=== PATIENT | male | born 1955 | race Caucasian/White ===

== ENCOUNTER 2016-05-07 13:45 | Emergency (ER) | payer MEDICARE ==
[~2016-05-07] VITALS: Ht 177.8 cm; Wt 97.7 kg
[~2016-05-07 13:45] MED LIST: SERT100T9 PO; excedrin
[2016-05-07 13:47] VITALS: BP 114/53; PULSE 84; RESP 20; O2SAT 98
--- NOTE | 2016-05-07 18:19 | ED.REPORT ---
HPI-Overdose/Alcohol Toxicity Date of Service May 07, 2016 ED Provider: Kasia Frost History of Present Illness: drinking , interested in going to detox. had a seizure with stopping alcohol last time. some nausea. tessa is primary care. Nursing Notes Stated Complaint: DETOX Chief Complaint: Substance Abuse Nursing Notes Reviewed: Yes Allergies: Coded Allergies: No Known Allergies (Unverified Allergy, Unknown, 01/18/15) Scheduled Sertraline HCl (Sertraline) 100 Mg Tablet 150 MG PO DAILY Scheduled PRN ([excedrin]) Unknown Dose PRN For Pain General Time Seen by Provider: 18:15 Chief Complaint Other (alcohol detox) Hx Obtained From: Patient Risk-Overdose/Alcohol Tox )( Suicide Risk Stratification : Alcohol use: Close associate suicide: [facility] psych [facility] Substance abuseNo: Access to firearms, Family Hx of Suicide, Previous attempt RF Statements: Risk factors reviewed Past Medical History Past Medical History PTSD Past Surgical History none reported Family History noncontributory Smoking History Unknown if Ever Smoker Social History Alcohol Use: 1-3 per day Other Social History: Smokeless tobacco Ambulatory Status Independent Review of Systems Basic Review of Systems : No dysuria, No frequency Hematologic: No bleeding, No bruising Endocrine: No cold intolerance, No heat intolerance, No weight gain, No weight loss Allergy / Immune: No allergy Physical Exam Initial Vital Signs Vital Signs (First) Date Time Temp Pulse Resp B/P Pulse Ox O2 Delivery O2 Flow Rate FiO2 05/07/16 13:47 36.8 84 20 114/53 98 Room Air Initial VS: Reviewed, Vital signs normal Head / Eyes: Atraumatic, Normocephalic, PERRL ENT: Mucous membranes moist, Conjunctiva normal, No scleral icterus Neck: Supple, Non-tender, Full range of motion Back: No CVA tenderness Lymphatic: No lymphadenopathy Extremities: Vascular intact, Neuro intact, No swelling, No tenderness Skin: Warm, Dry, No cyanosis General/Constitutional: Awake, Alert, No acute distress Respiratory / Chest: Atraumatic, Breath sounds NL, Breath sounds = bilat, No respiratory distress Cardiovascular: Heart rate NL, Regular rhythm, Heart sounds NL, No gallop Abdomen: Atraumatic, Soft, Non-tender Neurologic: Oriented X3, Speech NL, No motor deficits Psychiatric: Affect NL, Mood NL, Not suicidal Discharge & Departure Impression: Primary Impression: Alcohol abuse Disposition: LEFT WITHOUT BEING SEEN Discharge Condition Condition: Improved Patient Instructions: Abuse of Alcohol (ED) Additional Instructions: You have been accepted at [facility]! Congratulations on the start of your new life. You are being sent with [facility]. Please work with them at detox to start your new life. Referrals: Filiberto Oh MD (PCP) EDSupervising Provider for APC: Tonia Gray MD copies to: Filiberto Oh MD, Sue ARNP May 07, 2016 18:19
[2016-05-07] MEDS ORDERED: LORazepam 1 mg Tablet PO ONE (18:20)
[2016-05-07] MEDS ORDERED: _LORazepam 2 MG Tablet PO SCH (19:20)
[2016-05-07] MEDS ORDERED: _Ondansetron ODT 4 mg Tablet PO PRN (19:20)
[2016-05-07 20:05] VITALS: BP 126/88; PULSE 99; RESP 20; O2SAT 94
== END 2016-05-07 20:30 | disposition home or self-care (01) ==
LOC: SED 13:45
DX: F10.10 Alcohol abuse, uncomplicated (principal); R11.0 Nausea

== ENCOUNTER 2016-10-23 15:07 | Inpatient (IN) | payer MEDICARE ==
[~2016-10-23] VITALS: Ht 177.8 cm; Wt 91.0 kg
[2016-10-23 15:20] VITALS: BP 134/87; PULSE 98; RESP 20; O2SAT 96
--- NOTE | 2016-10-23 15:43 | ED.REPORT ---
HPI-General Illness Date of Service Oct 23, 2016 ED Provider: Elias Forrest MD Patient is a 60 year old male with a hx of alcohol abuse and PTSD who presents to the ED via police s/p his called 911 because he was making suicidal threats over the phone. He reports, "I can't stop drinkin' and I'm so depressed and pissed off" and "I'm tired of livin'". Per , he reported having access to a gun. Patient condones this statement and reports he had his gun loaded and under his chin. Patient declines to address a specific trigger for his symptoms today but reports that his symptoms have gradually gotten worse. Associated symptoms include non-specific homicidal ideations and intermittent visual hallucinations. Patient denies auditory hallucinations, fever, or any other symptoms. His last drink was "five minutes ago". He considers himself an alcoholic. He has a family hx of depression. He has been to the department for his alcohol abuse previously. Nursing Notes Stated Complaint: SUICIDAL Chief Complaint: Psychiatric Complaint Nursing Notes Reviewed: Yes Allergies: Coded Allergies: No Known Allergies (Unverified Allergy, Unknown, 01/18/15) Scheduled Sertraline HCl (Sertraline) 100 Mg Tablet 150 MG PO DAILY Scheduled PRN ([excedrin]) Unknown Dose PRN For Pain General Time Seen by MD: 15:13 Chief Complaint Other (Suicidal ideation) Hx Obtained From: Patient Arrived By: Police Sudden in Onset?: No Onset Occurred: Onset unknown Context of Onset: EtOH use Symptom Duration: Since onset Severity: Current: No pain currently Severity: Maximum: No pain Exacerbated by: Drinking (EtOH ) Similar Sx Previous: Yes Past Medical History Past Medical History PTSD Past Surgical History Kidney stone removal Reports: Appendectomy Family History Depression Smoking History Unknown if Ever Smoker Social History Alcohol abuse Alcohol Use: 1-3 per day Drug Use: THC Other Social History: Smokeless tobacco Ambulatory Status Independent Review of Systems Full Review of Systems Constitutional: Denies: Fever Psychiatric: Reports: Hallucinations, visual, Homicidal ideation, Suicidal ideation, Denies: Hallucinations, auditory Complete sys rev & neg: except as marked. Physical Exam Nursing note and vitals reviewed. Constitutional: Well-developed, well-nourished. Not diaphoretic. Head: Normocephalic and atraumatic. Mouth/Throat: Oropharynx is clear and moist. No oropharyngeal exudate. Eyes: EOM are normal. Pupils are equal, round, and reactive to light. Neck: Supple, no tracheal deviation. Cardiovascular: Normal rate, regular rhythm. Equal and intact distal pulses throughout. Pulmonary/Chest: Effort normal and breath sounds normal. No respiratory distress. Musculoskeletal: Range of motion grossly intact, moving all extremities. No edema or tenderness appreciated. Neurological: AOx3. Grossly nonfocal exam. Strength and sensation intact and equal to bilateral upper and lower extremities. Skin: Warm and dry, no rashes or pallor appreciated. Psychiatric: Endorsing suicidal ideation with plan but will not disclose details. Endorses active homicidal ideations but will also not disclose details. Says he "occasionally sees things" but denies hallucinations "like those other guys". Vital Signs Vital Signs Date Time Temp Pulse Resp B/P Pulse Ox O2 Delivery O2 Flow Rate FiO2 10/23/16 22:34 83 125/78 100 Room Air 10/23/16 18:16 37.2 98 15 135/96 95 Room Air 10/23/16 15:20 37.8 98 20 134/87 96 Room Air Interpretation & Diagnostics Lab Results Interpretation Result Diagram: 10/23/16 1809 10/23/16 1809 Test 10/23/16 15:21 10/23/16 18:09 Hold Urine Received (Received) White Blood Count 7.4th/mm3 (3.8-10.1) Red Blood Count 5.05mil/mm3 (4.40-5.80) Hemoglobin 15.2g/dL (13.8-17.2) Hematocrit 45.7% (41.0-50.0) Mean Corpuscular Volume 90.5fL (81-100) Mean Corpuscular Hemoglobin 30.1pg (27.0-35.0) Mean Corpuscular Hemoglobin Concent 33.3% (32.0-37.0) Red Cell Distribution Width 15.1% (12.3-15.4) Platelet Count 316bil/L (150-400) Neutrophils (%) (Auto) 57.9% (40-74) Lymphocytes (%) (Auto) 31.7% (14-46) Monocytes (%) (Auto) 7.6% (4-12) Eosinophils (%) (Auto) 2.2% (0-5) Basophils (%) (Auto) 0.5% (0-3) Sodium Level 140mEq/L (134-144) Potassium Level 4.3mEq/L (3.5-5.2) Chloride Level 98mEq/L (97-108) Carbon Dioxide Level 24mmol/L (18-29) Blood Urea Nitrogen 11mg/dL (6-24) Creatinine 0.80mg/dL (0.76-1.27) Estimat Glomerular Filtration Rate 106mL/min (>59) Glucose Level 94mg/dL (60-99) Calcium Level 9.6mg/dL (8.5-10.1) Total Bilirubin 0.2mg/dL (0.0-1.2) Aspartate Amino Transf (AST/SGOT) 22U/L (0-50) Alanine Aminotransferase (ALT/SGPT) 15U/L (0-44) Alkaline Phosphatase 77U/L (25-150) Total Protein 8.1g/dL (6.4-8.4) Albumin 4.9g/dL (3.4-5.0) Thyroid Stimulating Hormone (TSH) 0.529uIU/mL (0.450-4.500) Re-Eval/Medical Decision Med Decision/Clinical Course In summary, 60-year-old male presenting to the ED for evaluation of suicidal ideations and homicidal ideations in the setting of alcohol intoxication. Aside from his alcohol intoxication, no obvious laboratory abnormalities that would account for his current presentation and feelings. Given this, concern that he may be a harm to himself or others, he will need psychiatric evaluation/ social work involvement once sober. Patient signed out to Dr. Adorno with social work evaluation pending. Discharge & Departure Shift Change Sign-Out Patient Care Transferred: Yes Discussed Complaint(s): Yes Laboratory Evaluation: Back, reviewed by me Transfer of care to Dr. Adorno at 0000. Primary Impression: Suicidal ideation Additional Impression: Alcohol abuse Discharge Condition All VS Reviewed: Yes Condition: Stable Referrals: Filiberto Oh MD (PCP) Care Transferred to: Dr. Adorno Care Transferred at: 00:00 Scribe Attestation Portions of this note were transcribed by Anmol Almendarez. I, Dr. Forrest personally performed the history, physical exam and medical decision-making; I reviewed and confirmed the accuracy of the information in the transcribed note. Signed by: Anmol Almendarez 10/23/16, 5372 copies to: Filiberto Oh MD, William B MD Oct 23, 2016 15:43 ANMOL ALMENDAREZ Oct 23, 2016 15:53
[2016-10-23] MEDS ORDERED: LORazepam 2 mg Tablet PO ONE (17:20)
[2016-10-23 18:16] VITALS: BP 135/96; PULSE 98; RESP 15; O2SAT 95
[2016-10-23 18:19] LABS: BASOPHILS % (AUTO) 0.5 % (0-3); EOSINOPHILS % (AUTO) 2.2 % (0-5); MONOCYTES % (AUTO) 7.6 % (4-12); Mean Corpuscular Hemoglobin 30.1 pg (27.0-35.0); Mean Corpuscular Volume 90.5 fL (81-100); NEUTROPHILS % (AUTO) 57.9 % (40-74); Platelet Count 316 bil/L (150-400)
[2016-10-23 22:34] VITALS: BP 125/78; PULSE 83; O2SAT 100
[2016-10-24] VITALS (8 sets, daily range): BP systolic 139–160; BP diastolic 83–101; PULSE 81–105; RESP 11–19; O2SAT 98–100
[2016-10-24] MEDS ORDERED: LORazepam 2 mg Tablet PO ONE (01:55)
[2016-10-24] MEDS ORDERED: GABA600T2 PO ×2 (14:38)
[2016-10-24] MEDS ORDERED: Ondansetron 2 mg/mL 2 mL Inj IVPUSH PRN ×2 (14:40→15:35)
[2016-10-24] MEDS ORDERED: Alum-Mag Hydrox-Simeth 30 mL Suspension PO PRN ×2 (14:40→15:35)
[2016-10-24] MEDS ORDERED: GABA-504 PO ×2 (15:08)
[2016-10-24] MEDS ORDERED: ASPI-1148 PO (15:17)
[2016-10-24] MEDS ORDERED: CARB15DR78 BOTH_EYES (15:17)
[2016-10-24] MEDS ORDERED: KLO1T PO (15:17)
[2016-10-24] MEDS ORDERED: MELA1TAB21 PO (15:17)
[2016-10-24] MEDS ORDERED: BUPR150T8 PO ×2 (15:17)
[2016-10-24] MEDS ORDERED: 0.9% Sodium Chloride 1,000 ML IV SCH (15:34)
[2016-10-24] MEDS ORDERED: Polyethylene Glycol (PEG) 17 Gm Powder PO PRN (15:35)
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
--- NOTE | 2016-10-24 16:19 | NUR ---
Admit to [facility] Patient report called by ED RN. Patient arrived via wheelchair to room 3016. Patient was able to self transfer independently to bed and has sitter in room with him at bedside. Patient had complaints of 7/10 headache and jaw pain. Patient states he broke his jaw a few weeks ago, but unsure of exact date. Patient oriented to staff, room, call light, television, and visiting hours. Patient CIWA assessed and rated a 10 and was administered 10mg diazepam IV. Patient bed locked and call light in place.
[2016-10-24] MEDS ORDERED: oxyCODONE-Acetamin 5-325 mg Tablet PO PRN (17:45)
[2016-10-24] MEDS: oxyCODONE-Acetamin 5-325 mg Tablet PO PRN (21:57)
[2016-10-25] VITALS (9 sets, daily range): BP systolic 125–160; BP diastolic 70–100; PULSE 71–93; RESP 18; O2SAT 95–100
[2016-10-25] MEDS: oxyCODONE-Acetamin 5-325 mg Tablet PO PRN ×3 (05:32→23:23)
[2016-10-25 05:40] LABS: BASOPHILS % (AUTO) 0.6 % (0-3); MONOCYTES % (AUTO) 14.2 % (4-12); Mean Corpuscular Hemoglobin 30.5 pg (27.0-35.0); Mean Corpuscular Volume 91.6 fL (81-100); NEUTROPHILS % (AUTO) 51.8 % (40-74); Platelet Count 274 bil/L (150-400)
[2016-10-25 05:57] LABS: Magnesium 2.3 mg/dL (1.6-2.6)
--- NOTE | 2016-10-25 06:01 | NUR ---
Headache/CIWA Pt complained of headache 12/13. Administered Motrin and Percocet, effective. Pt CIWA scores 14, 11, 11 during the night. Administered Valium. Pt slept intermittently during the night with no complaints of cardiac pain, SOB, n/v. Call light within reach, using appropriately. Frequent rounding in place. Pleasant and cooperative with care.
[2016-10-25] MEDS: Multivit-Miner-Folic Acid-Iron Tablet PO SCH (07:59)
--- NOTE | 2016-10-25 10:14 | NUR ---
Anxiety/CIWA/Suicidal ideation Patient had anxiety at panic level. Patient was tapping foot continually and tears in his eyes. Patient had a quivery voice and stated, "My heads not right. I have this rage and the only way to keep it bottled up is to walk and have tears". Nurse asked if he was having rage at that point and he stated yes. Nurse encouraged patient to keep walking hallway and continued to administer Diazepam IV as needed per CIWA scores. Last CIWA score was 12 and patient was administered 10mg IV Diazepam. When asked if he had thoughts of harming himself, he stated, "I had thoughts of riding my bike into a car if this doesn't work". Nurse asked if he continued to have those thoughts and he said, "yes". Sitter at bedside with patient and walks hallway with patient.
--- NOTE | 2016-10-25 11:30 | PCM.PNMED ---
Subjective Date of Service Oct 25, 2016 Subjective Pt notes improvement of sweats/chills, and less tremor but still highly anxious , emotional, and stressed. This is certainly chronic. Pt states this is a long time problem, he is the habit of "Swallowing my emotions and pushing down as long as I can" Exam Vital Signs Vital Sign - Last Date Time Temp Pulse Resp B/P Pulse Ox O2 Delivery O2 Flow Rate FiO2 10/25/16 09:30 36.3 89 18 160/100 100 Room Air Intake and Output 10/24/16 10/24/16 10/25/16 Cumulative From/Thru 15:00 23:00 07:00 10/23/16 15:15 - 10/25/16 06:00 Intake Total 586 ml 586 ml Output Total 150 ml 150 ml Balance 436 ml 436 ml Intake Oral 586 ml 586 ml Output Urine Total 150 ml 150 ml # Voids 4 5 # Bowel Movements 0 0 General: Alert, Oriented X3, Cooperative, Moderate Distress, Other ( intermittently tearful obviously experiencing high degree of stress) Cardiovascular: Regular Rate/Rhythm Abdomen: Non-tender, Non-distended Skin: Other (skin is dry and nondiaphoretic) Neurological: Grossly Neurologically Intact, Other (tremors resolved) IVs and Medications Medications Reviewed: Medications were reviewed in detail Lab and Diagnostics Result Diagram: 10/25/1652010/25/16520 Assessment & Plan A 60-year-old male presenting to ER with suicidal ideations in addition to alcohol intoxication, admitted on medical service for management of acute alcohol withdrawal syndrome prior to likely transfer to psychiatric service for further evaluation and treatment of severe depression 1. Alcohol dependence with acute withdrawal - Initially placed on medical floor monitor closely on CIWA protocol - Valium will be given as needed based on cholesterol scores -Patient will be continued on continuous telemetry - We will provide thiamine, folate and multivitamin to address possible nutrition deficiencies associated with alcoholism - Continue intravenous fluids 100 mL per hour at this time, discontinued given good by mouth intake 2. Depression and suicidal ideation - Psychiatry has been contacted and will continue to consult on this patient on medical floor, with expected transfer to psychiatric service thereafter should further management of his severe depressive disorder with suicidal thoughts be deemed necessary. - Patient is currently denying thoughts of suicidal ideation and has some hope improvement with continued therapy and medical support. -Psychiatry was consulted and are pending further evaluation 3. Jaw pain - We will provide when necessary medications as needed for pain, primarily ibuprofen with Percocet prescribed in addition for refractory symptoms. Given necessity of complete alcoholic soft limit chances of seizure or other complicating factors related to alcohol dependency, this hospitalization will likely require greater than 2 midnights Pain Evaluation: Adequate Pain Control GI Prophylaxis: Not indicated VTE Mechanical Devices: Intermittant Pneumatic CD Resuscitation Status: CPR: Attempt Resuscitation Time spent 30 minutes Miguel Angel Danielson DO Oct 25, 2016 11:30
[2016-10-25] MEDS: buPROPion SR 150 mg ER12 Tablet PO SCH ×2 (11:50→21:16)
--- NOTE | 2016-10-26 05:29 | NUR ---
Anxiety/CIWA Pt continued to walk the halls intermittently throughout the night related to high levels of anxiety. Pt teary eyed at times. Denies active suicide thoughts at this time. Administering Valium as needed per CIWA score, last score 11. Pt resting in bed with eyes closed. No s/sx of pain or discomfort. Call light within reach. 1:1 sitter. Pleasant and cooperative with care.
[2016-10-26 06:59] VITALS: BP 136/96; PULSE 93; RESP 18; O2SAT 100
[2016-10-26] MEDS: buPROPion SR 150 mg ER12 Tablet PO SCH ×2 (07:40→20:27)
[2016-10-26] MEDS: Multivit-Miner-Folic Acid-Iron Tablet PO SCH (07:40)
[2016-10-26] MEDS: oxyCODONE-Acetamin 5-325 mg Tablet PO PRN ×3 (08:19→23:11)
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
--- NOTE | 2016-10-26 14:26 | NUR ---
Social Work: Transfer to [facility] informed by that Psych saw pt today, they are willing and able to take pt and have a bed available. Pt has Medicare and no cert is needed. cancelled [facility] CD assessment order for pt. vehicle technician notified and arranging transfer with U. No further d/c planning needs at this time. [facility] will continue to follow if needs arise. Assessment: Pt who is independent at baseline, alcohol use. Plan: Pt will transfer to [facility]. vehicle technician notified and arranging transfer with [facility]. No further d/c planning needs at this time. [facility] will continue to follow if needs arise. NURIA Randle
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
[2016-10-26] MEDS ORDERED: NICO1PAT6 TOPICAL (14:29)
--- NOTE | 2016-10-26 14:30 | PCM.DIMED ---
Discharge Instructions Date of Service Oct 26, 2016 Dates of Hospitalization Oct 24, 2016 at 15:20 Discharge Diagnosis Discharge Diagnosis 1. Alcohol withdrawal syndrome 2. Alcohol dependence 3. Mood disorder 4. Suicidal ideation 5. PTSD Diet Discharge Diet: No restrictions Activity Discharge Activity: No restrictions Patient Instructions Patient Instructions Continue treatment at mental health facility with plan to return home shortly for continued care in office setting. Follow-up plan As scheduled on discharge from psychiatric unit. Miguel Angel Danielson DO Oct 26, 2016 14:30
--- NOTE | 2016-10-26 14:37 | NUR ---
Discharge Patient given discharge orders to go to mental health. Patient IV removed fully intact and asymptomatic. Patient informed of transfer to mental health. Patient belongings packed. Patient report called to Aleksandr BERTRAND, at mental health unit. Patient transfer via wheelchair to unit.
[2016-10-26 15:00] VITALS: BP 134/90; PULSE 104; RESP 16
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
[2016-10-26 15:07] VITALS: BP 117/87; PULSE 88; RESP 18; O2SAT 99
[2016-10-26] MEDS ORDERED: Magnesium Hydroxide 10 mL Oral Concentration PO PRN (16:10)
[2016-10-26] MEDS ORDERED: Benzocaine-Menthol Lozenge 2/Pkg PO PRN (16:10)
[2016-10-26] MEDS: LORazepam 1 mg Tablet PO PRN ×3 (16:22→20:29)
--- NOTE | 2016-10-26 17:16 | NUR ---
Observations 899 - 2129 Pt arrived on unit at 15:15, signed all admission paperwork, was shown to his room and given a pair of scrubs to change into. Pt appeared to be flat, guarded, anxious and withdrawn. Pt was out on the unit and mainly keeps to himself. Pt speech and eye contact was ok. Pt is pleasant, polite and cooperative upon approach. Pt maintained behavior control since arriving on the unit. Pt attended dinner in D.R. and ate 100% of meal. Pt was offered snack but he refused. Pt was observed every 15 minutes throughout the shift as ordered.
[2016-10-26 21:20] VITALS: BP 108/78; PULSE 85; RESP 16
[2016-10-27] MEDS: LORazepam 1 mg Tablet PO PRN ×2 (03:53→08:13)
[2016-10-27] MEDS: oxyCODONE-Acetamin 5-325 mg Tablet PO PRN ×2 (03:54→12:31)
[2016-10-27 03:55] VITALS: BP 116/88; PULSE 69; RESP 18
--- NOTE | 2016-10-27 05:35 | NUR ---
Nursing Note Manager Mba 7pm to 7am Pt pacing the unit, affect and mood depressed/anxious. Pt reports pain in his jaw from previous injury at home is a 10/10. Given Percocet 1 tab for pain at 2300 and 0330 with good relief. Pt arrived from the medical floor this evening after being managed on CIWA protocol for alcohol withdrawal syndrome however he denied symptoms of withdrawal and vital signs remained stable. Pt received Ativan 1mg at 2030 and 0330 for anxiety 8/10 and Ambien 5mg for insomnia given at 2300 with moderate effect. Pt woke up at 0330 requesting his repeat dose of Ambien but informed it was too late in the shift. Pt returned to sleep at 0430. Monitored pt. q 15 minutes for safety location and accountability.
[2016-10-27] MEDS: Multivit-Miner-Folic Acid-Iron Tablet PO SCH (08:02)
[2016-10-27] MEDS: buPROPion SR 150 mg ER12 Tablet PO SCH (08:02)
[2016-10-27 08:17] VITALS: BP 141/76; PULSE 106; RESP 16
--- NOTE | 2016-10-27 14:04 | NUR ---
Observations 0700 - 1500 Pt was flat, brighter when engaged, pacing hallways and anxious. Pt was out of his room but minimally social with peers and staff. Pt speech and eye contact was ok. Pt is pleasant and friendly upon approach. Pt is polite and cooperative. Pt maintained behavior control throughout the shift. Pt attended community meeting, group and unit activities. Pt set a daily goal and rated his mood 3.5/10 with 10 being the best. Pt attended meals in D.R. and ate 100% of breakfast and 50% of lunch. Pt went out on patio with staff and peers to get some fresh air. Pt was observed every 15 minutes throughout the shift as ordered.
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
--- NOTE | 2016-10-27 14:29 | NUR ---
S:"I'm dealing with a lot of stuff from the past." O:Patient did report SI, but no HI. He did not report any AVH and rated his anxiety at an 8 and his depression at a 10. He slept for 5.5 hours. A:Patient presented very anxious. He asked the dr "what his agenda" was, in regards to his treatment and medications. He admits to anger problems and appeared very agitated and annoyed at times. He did thank both this customs entry writer and the dr for their patience in working with him. Patient stated he was having a panic attack right after group and during the beginning of the meeting with this customs entry writer and the doctor. S: Follow care plan and coordinate with outpatient providers.
[2016-10-27] MEDS ORDERED: buPROPion SR 150 mg ER12 Tablet PO ONE (17:30)
--- NOTE | 2016-10-27 18:44 | NUR ---
PRN Medication Pt states he is getting a "caffeine headache." He reports drinking "3 pots" of coffee daily. Percocet & Motrin given for headache as requested.
[2016-10-27 21:00] VITALS: BP 158/103; PULSE 78; RESP 16
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
[2016-10-28] MEDS: LORazepam 1 mg Tablet PO PRN (02:43)
--- NOTE | 2016-10-28 04:23 | NUR ---
Nursing Note Hydrotechnical Specialist 7pm to 7am Pt visible on unit at start of shift walking the halls with female peer. Pt pleasant, calm and cooperative. Pt reports anxiety 5/10 and reports pain is being controlled. Pt denies SI, plan or intent, thoughts logical, linear though has a difficult time concentrating at times. Pt took Ambien 10mg with HS meds and fell asleep by 2230. Pt woke up at 0230 c/o a night mare. He received Ativan 2mg and spent some time walking the unit until 0345, when he went back to bed. Monitored pt. q 15 minutes for safety location and accountability
[2016-10-28] MEDS: buPROPion SR 150 mg ER12 Tablet PO SCH (08:30)
[2016-10-28] MEDS: Multivit-Miner-Folic Acid-Iron Tablet PO SCH (08:45)
[2016-10-28] MEDS: buPROPion XL 150 mg ER24 Tablet PO SCH (08:45)
[2016-10-28] MEDS: oxyCODONE-Acetamin 5-325 mg Tablet PO PRN ×3 (08:52→21:34)
[2016-10-28 11:30] VITALS: BP 122/90; PULSE 89; RESP 16
--- NOTE | 2016-10-28 14:21 | NUR ---
NURSING NOTE [id number] Mood: "I feel like my anxiety has gotten better but I'm still depressed" Affect: flat, brighter w/peers Behavior: Participated in community mtg, played football outdoors, attended rec group. Is med compliant. Thought processes: pt. expressing some negative thinking e.g.: "I'm doing fine now until they come tell me today I'm being kicked out early" and talking about his disappointment w/various sponsors he has had in the past: "I'm finding out who my real friends are." Spoke of his most recent sobriety of 150 days being "the happiest time of my life" and said that when he hurt his jaw last month he couldn't open his mouth to eat and "I don't care what anyone says--beer is food, it has hops in it... it's better than water when you're not eating anything." He expressed appreciation for the care received at this hospital. Denies SI/HI. Endorsing depression 11/12 and anxiety 08/13. PRNs Motrin 600 mg 6/10 jaw pain @ 08:52 Percocet 5-325 mg 6/10 jaw pain @ 08:52 and again @ 12:57
--- NOTE | 2016-10-28 15:47 | PCM.PNPSY ---
Subjective Date of Service Oct 28, 2016 Subjective The patient reports that he had some irritability earlier in the evening but had a decrease overall in anxiety and irritability overnight and so far this morning. In the middle of the night he reports hearing an alarm which awoke him and he took some time to get back to sleep. Despite this he slept approximately 5-1/4 hours which is more than typical. He is denying side effects from current medications. He denies having flashbacks so far today but still endorses some negative self talk. The patient still struggles with his conflicted beliefs about using clonazepam. He reports that hydroxyzine has been moderately successful for low-level anxiety and clonazepam for higher anxiety. He states that he is still hypervigilant and places himself in a room where he has good line of sight. He reports no drowsiness from his current medication or adverse side effects. Sleep: 5.25 hours Appetite: "Still low " Suicidal and homicidal ideation: Denies Auditory hallucinations: Denies Visual hallucinations: Denies Other Psychotic Symptoms: N/A Anxiety: Pretty low Depression: "Generally pretty high blood pretty low right now... It goes along with the anxiety " Current Medications Current Medications Bupropion HCl 150 mg DAILYWD ONCE PO Last administered on 10/27/16 18:03; Admin Dose 150 MG; Start 10/27/16 at 17:30; Stop 10/27/16 at 17:31; Status DC Bupropion HCl 450 mg DAILY PO Last administered on 10/28/16 08:45; Admin Dose 450 MG; Start 10/28/16 at 08:30 Escitalopram Oxalate 5 mg ONCE ONCE PO Last administered on 10/27/16 14:40; Admin Dose 5 MG; Start 10/27/16 at 14:10; Stop 10/27/16 at 14:27; Status DC Escitalopram Oxalate 10 mg DAILY PO Last administered on 10/28/16 08:46; Admin Dose 10 MG; Start 10/28/16 at 08:30 Lorazepam 1-2MG Q4 PRN PO Last administered on 10/28/16 02:43; Admin Dose 2 MG ; Start 10/26/16 at 16:15; Stop 10/28/16 at 13:02; Status DC Nicotine Polacrilex 2 mg Q4H PRN PO Last administered on 10/28/16 12:14; Admin Dose 2 MG; Start 10/26/16 at 16:10 Oxycodone/ Acetaminophen 1 tab Q4H PRN PO Last administered on 10/28/16 12:57 ; Admin Dose 1 TAB; Start 10/26/16 at 16:15 Propranolol HCl 10 mg TID PO Last administered on 10/28/16 08:45; Admin Dose 10 MG; Start 10/27/16 at 14:30; Stop 10/28/16 at 13:02; Status DC Propranolol HCl 20 mg TID PO Last administered on 10/28/16 14:36; Admin Dose 20 MG; Start 10/28/16 at 14:30 Thiamine HCl 100 mg DAILY PO Last administered on 10/28/16 08:45; Admin Dose 100 MG; Start 10/27/16 at 08:30 Zolpidem Tartrate 5 mg STK-MED ONCE .ROUTE Last administered on 10/26/16 21:18 ; Admin Dose 5 MG; Start 10/26/16 at 21:11; Stop 10/26/16 at 21:15; Status DC Zolpidem Tartrate 5-10 MG HS PRN PO Last administered on 10/27/16 21:02; Admin Dose 10 MG; Start 10/26/16 at 21:20 Mental Status Exam Vital Signs Vital Signs Date Time Temp Pulse Resp B/P Pulse Ox O2 Delivery O2 Flow Rate FiO2 10/28/16 11:30 36.2 89 16 122/90 Appearance: Neat/well groomed Attitude: Pleasant, Cooperative Behavior: No unusual behavior Affect: Restricted Mood: Dysthymic, Anxious Thought Process/Associations: Logical/Sequential, Goal Directed Speech Production: Normal Speech Rate: Normal Speech Articulation: Normal Thought Content: Guilt Danger to Self/Suicidal Ideati: None Danger to Others: None Hallucinations: Auditory (Denies), Visual (Denies) Consciousness: Alert Orientation: Person, Place, Date, Situation Memory: Short Term Memory (Impaired), Detention Memory (Impaired) Estimate Intellectual Function: Average Basis for IQ estimate: Word use/vocabulary, Educational history Attention/Concentration & Cogn: Impaired (slightly) Insight: Good Judgement: Good Result Diagram: 10/25/1652010/25/16520 Mental Health Plan The patient is a 60-year-old male who is admitted for suicidal ideation and alcohol intoxication withdrawal. He has a long history of difficulty dealing with anger and this is complicated by his history of trauma and resulting posttraumatic stress disorder. The patient is not currently engaged in [facility] Services and is somewhat oppositional regarding his treatment but is now willing to have outpatient [facility] treatment. The patient also consumes two pots of strong coffee per day, likely exacerbating his anxiety symptoms. The patient appears to be through his alcohol withdrawal and is exhibiting no signs of acute withdrawal syndrome. The patient appears to be experiencing some benefit from propranolol with decreased anger and aggression. The patient tolerated moving the Wellbutrin to the morning and is agreeable to using the clonazepam once daily with hydroxyzine for lower level anxiety. [place] I. 1. Posttraumatic stress disorder. 2. Alcohol use disorder. 3. Major depressive disorder versus alcohol-induced depressive disorder. [place] II. Deferred. [place] III. See past medical history. [place] IV. Moderate. [place] V. Global Assessment of Functioning 35. Medications Propranolol 20 mg 3 times a day Escitalopram 10 mg daily Bupropion XL 450 mg daily Melatonin 10 mg nightly Zolpidem 5-10 mg nightly as needed for insomnia Clonazepam 1 mg daily Hydroxyzine 50 mg every 4 hours as needed for anxiety or agitation Gabapentin 1200 mg in the morning and 600 mg at bedtime Oxycodone acetaminophen 1 tablet every 4 hours as needed for pain Nicotine 2 mg every 4 hours as needed for tobacco withdrawal Nicotine 21 mg patch topical daily vitamin daily Thiamine 100 mg daily Treatments 1. The patient is admitted to the inpatient unit and will be provided a safe and secure environment. 2. The patient is denying current active suicidality and is not in need of one-to-one at this time. As the patient still has a gun in the home, he was advised that prior to discharge, this should be removed from the house and kept with one of his sons, who are keeping the rest of his firearms locked up. 3. The patient is encouraged to participate with group and milieu activities. 4. The patient will be seen by the treatment team on a daily basis to assess symptom side effects and response to treatment. 5. The patient will be continued on his current medications except Propranolol will be increased to 20 mg 3 times a day and switch to the long- acting version if effective. Discontinue lorazepam Hydroxyzine 50 mg every 4 hours when necessary anxiety or agitation. 6. The patient will be continued on his thiamine 100 mg daily and multivitamin, but CIWA protocol/Valium will be discontinued. 7. Anticipated length of stay is 7-10 days. Jose Anton MD Oct 28, 2016 15:47
--- NOTE | 2016-10-28 17:14 | NUR ---
Observations [id number] Pt friendly with staff and peers. Pt active on unit, pacing the halls, and participating in groups and spending time on patio. He spent lots of time with another female pt during the day. Pt wanting to go outside multiple times throughout the day, appearing anxious. He attended all meals, eating 100%. He was observed every 15 minutes of shift as directed.
--- NOTE | 2016-10-28 19:26 | NUR ---
Nurses Note Evening Patient remains on the unit socializing with peers,watching TV,playing board games. He an episode of increased anxiety and received Klonopin 1mg at 1725 with good response. Patient remains medication compliant. He wants to find more AA sponsors that ride motorcycles believing he would be able to relate more. He continues to question his ability to cope with deep seated regrets and family issues. Will continue to encourage improved insight,improved coping and continued sobriety with counseling. Maintain q 15min. checks for safety and support. Addendum: 10/28/16 at 2006 by ALEJANDRO ARREOLA RN Amended: Links added.
--- NOTE | 2016-10-29 05:18 | NUR ---
[facility] Nursing Note Clinical Technician 11pm to 7am Pt asleep at start of shift and slept until 0445 without interruption. Breathing even and unlabored. No issues observed or reported. Monitored pt. q 15 minutes for safety location and accountability
[2016-10-29] MEDS: buPROPion XL 150 mg ER24 Tablet PO SCH (07:51)
[2016-10-29] MEDS: Multivit-Miner-Folic Acid-Iron Tablet PO SCH (07:51)
[2016-10-29] MEDS: oxyCODONE-Acetamin 5-325 mg Tablet PO PRN (07:53)
[2016-10-29 08:15] VITALS: BP 131/89; PULSE 92; RESP 17
--- NOTE | 2016-10-29 15:50 | NUR ---
Motorcycle Sales Associate/Counselor S:"My anxiety is over the top right now." O: Patient denied any SI and HI, no AVH, but rated both his anxiety and depression at a 10+.He slept for 5.75 hours. A:Patient attended group and was out in the milieu. He actively participated but after he expressed and displayed a high level of anxiety. He stated that his phone needs charging so he can retrieve the number for one of his sons, who will be able to retrieve his gun from under his couch. Patient was cooperative and pleasant, but paced the halls in the afternoon due to anxiety. P:Follow care plan and coordinate with outpatient providers.
--- NOTE | 2016-10-29 18:29 | NUR ---
Nursing and MHA: Sylvia has been active on the unit. He stated that the medicaitons are helping with his feelings of rage. However, he also stated that "I have been dealing with this for 42 years. A sam just gets tired of trying. [facility] has worked with me but it just hasn't helped." When asked about access to gun after discharge, he indicated he really would like to have his pistol to carry when he goes walking [place] the [place]. During the p.m. group, he stated that "It got to me" I tried to walk off the feelings but I got very anxious. Received Klonopin 1 mg PRN for anxiety at that time and Tylenol 650 mg at 1500 for neck/back pain. By 1700, he stated "Pain is gone." Assessment: effective (which is significant since he was took Percoset for pain 3 times yesterday and josr procedure writer "I have a high tolerance for many medications.") Told MHA that "The medication I am receiving give me energy. I can't sit still." Worked productively on a Stir project for his grandson. P: Continue to assess for med effectiveness
--- NOTE | 2016-10-29 21:42 | PCM.PNPSY ---
Subjective Date of Service Oct 29, 2016 Subjective The patient reports that he had a panic attack during the 1pm group triggered by discussion. Patient remained in group but after paced for 30 minutes before asking for a clonazepam. Patient reports fatigue from medication, but was noted to have had 4 [place] in less than 24 hours. Patient requested Excedrin but was agreeable to combination of acetaminophen and aspirin with his routine caffeine. Although the patient reported anxiety "through the roof," he appeared calm and almost sedated. Patient smiled more and was engaging with the treatment team. He was agreeable to switching to the long acting propranolol. Sleep: 5.75 hours Appetite: "Still low " Suicidal and homicidal ideation: Denies HI, passive SI with "frustration with situation" denies plan or intent. Auditory hallucinations: Denies Visual hallucinations: Denies Other Psychotic Symptoms: N/A Anxiety: as above Depression: "Pretty high" Current Medications Current Medications Acetaminophen 650 mg Q6H PRN PO Last administered on 10/29/16 14:27; Admin Dose 650 MG; Start 10/29/16 at 13:00 Bupropion HCl 450 mg DAILY PO Last administered on 10/29/16 07:51; Admin Dose 450 MG; Start 10/28/16 at 08:30 Escitalopram Oxalate 10 mg DAILY PO Last administered on 10/29/16 07:51; Admin Dose 10 MG; Start 10/28/16 at 08:30 Hydroxyzine Pamoate 50 mg Q4H PRN PO Last administered on 10/28/16 21:36; Admin Dose 50 MG; Start 10/28/16 at 13:00 Propranolol HCl 20 mg TID PO Last administered on 10/29/16 21:00; Admin Dose 20 MG; Start 10/28/16 at 14:30; Stop 10/29/16 at 23:00 Mental Status Exam Appearance: Neat/well groomed Attitude: Pleasant, Cooperative Behavior: No unusual behavior Affect: Restricted Mood: Dysthymic, Anxious Thought Process/Associations: Logical/Sequential, Goal Directed Speech Production: Normal Speech Rate: Normal Speech Articulation: Normal Thought Content: Guilt Danger to Self/Suicidal Ideati: None Danger to Others: None Hallucinations: Auditory (Denies), Visual (Denies) Consciousness: Alert Orientation: Person, Place, Date, Situation Memory: Short Term Memory (Impaired), Skilled Nursing Memory (Impaired) Estimate Intellectual Function: Average Basis for IQ estimate: Word use/vocabulary, Educational history Attention/Concentration & Cogn: Impaired (slightly) Insight: Good Judgement: Good Result Diagram: 10/25/1652010/25/16520 Mental Health Plan The patient is a 60-year-old male who is admitted for suicidal ideation and alcohol intoxication withdrawal. He has a long history of difficulty dealing with anger and this is complicated by his history of trauma and resulting posttraumatic stress disorder. The patient is not currently engaged in [facility] and is somewhat oppositional regarding his treatment but is now willing to have outpatient [facility] treatment. The patient also consumes two pots of strong coffee per day, likely exacerbating his anxiety symptoms. The patient appears to be through his alcohol withdrawal and is exhibiting no signs of acute withdrawal syndrome. The patient appears to be experiencing some benefit from propranolol with decreased anger and aggression. The patient has tolerated moving the Wellbutrin to the morning, addition of escitalopram and is agreeable to using the clonazepam once daily with hydroxyzine for lower level anxiety. [place] I. 1. Posttraumatic stress disorder. 2. Alcohol use disorder. 3. Major depressive disorder versus alcohol-induced depressive disorder. [place] II. Deferred. [place] III. See past medical history. [place] IV. Moderate. [place] V. Global Assessment of Functioning 35. Medications Propranolol LA 60mg once a day Escitalopram 10 mg daily Bupropion XL 450 mg daily Melatonin 10 mg nightly Zolpidem 5-10 mg nightly as needed for insomnia Clonazepam 1 mg daily Hydroxyzine 50 mg every 4 hours as needed for anxiety or agitation Gabapentin 1200 mg in the morning and 600 mg at bedtime Acetaminophen 650mg with aspirin 325mg po q 6hr prn pain Nicotine 2 mg every 4 hours as needed for tobacco withdrawal Nicotine 21 mg patch topical daily vitamin daily Thiamine 100 mg daily Treatments 1. The patient is admitted to the inpatient unit and will be provided a safe and secure environment. 2. The patient is denying current active suicidality and is not in need of one-to-one at this time. As the patient still has a gun in the home, he was advised that prior to discharge, this should be removed from the house and kept with one of his sons, who are keeping the rest of his firearms locked up. 3. The patient is encouraged to participate with group and milieu activities. 4. The patient will be seen by the treatment team on a daily basis to assess symptom side effects and response to treatment. 5. The patient will be continued on his current medications except Propranolol will be switched to LA 60mg daily Discontinue [place] Acetaminophen 650mg with aspirin 325mg q6hr prn 6. The patient will be continued on his thiamine 100 mg daily and multivitamin, but CIWA protocol/Valium will be discontinued. 7. Anticipated length of stay is 7-10 days. Jose Anton MD Oct 29, 2016 21:41 Jose Anton MD Oct 29, 2016 21:41
--- NOTE | 2016-10-30 02:24 | NUR ---
Nursing Kati Pt spent the majority of the evening visiting with a female peer. He was noted to be smiling and talking with her as they walked in the hallway. Later he watched a movie and participated in snack group. He took his scheduled HS medication without difficulty along with prn Ambien 5mg po prn with good results. He had no complaints this evening. He has remained asleep with no noted distress or awakening per protocol checks. Addendum: 10/30/16 at 0605 by PER WILSON RN Total sleep over 7.5 hours.
[2016-10-30] MEDS: buPROPion XL 150 mg ER24 Tablet PO SCH (08:32)
[2016-10-30] MEDS: Multivit-Miner-Folic Acid-Iron Tablet PO SCH (08:32)
[2016-10-30] MEDS: Propranolol LA 60 mg ER24 Capsule PO SCH (08:32)
--- NOTE | 2016-10-30 15:41 | NUR ---
web site manager/Counselor S:"My depression feeds off my anxiety." O: Patient stated that he had some SI this morning, but not this afternoon. He did not express any HI and no AVH. His depression was rated at an 8 and his anxiety at a 4. A: Patient participated in group, and stated that he enjoyed the breathing exercise. He did not appear as angry and anxious after group today as he did yesterday, and was pleasant and cooperative. Patient has been out in the milieu and interacting with other patients. P: Follow discharge plans and coordinate with outpatient providers.
[2016-10-30 16:29] VITALS: BP 109/79; PULSE 74; RESP 17
--- NOTE | 2016-10-30 18:11 | NUR ---
Observations [id number] Pt very anxious in the morning, asking to go on patio and take a shower to help calm down. Pt did participate in groups, and was friendly with staff and peers throughout the day. Pt attended all meals, eating an average of 75%. Good with ADL's. Pt was observed every 15 minutes of shift as directed.
--- NOTE | 2016-10-30 19:59 | NUR ---
Nursing: Day shift 0700 to 1900 Elias made statement at 1700 that "It got better after that" in reference to how he felt with extreme anxiety at the beginning of the shift. At that time he received the one PRN Klonopin 1 mg po order. Did request nicotine losenges x 3 this shift. Also PRN Tylenol 650 mg at dinner time for headache pain at 7/10 level. By 1800, his pain was reduced to 4/10. Takes scheduled meds as offered. Discharge plans not discussed with Elias by this caption writer.
--- NOTE | 2016-10-30 20:23 | PCM.PNPSY ---
Subjective Date of Service Oct 30, 2016 Subjective The patient reports that he woke up feeling angry. He initially tried a hydroxyzine, but later took a clonazepam. He reported that his anxiety and anger overall have improved since admission. He states that others say he has improved, but he has difficulty seeing it himself. Patient is concerned that although he is doing better in the hospital, he is concerned that when he discharges his symptoms will return. Sleep: 7.5 hours Appetite: Increased today Suicidal and homicidal ideation: passive, no plan/intent Auditory hallucinations: denies Visual hallucinations: denies Other Psychotic Symptoms: N/A Anxiety: 09/12 Depression: 10/13 Current Medications Current Medications Acetaminophen 650 mg Q6H PRN PO Last administered on 10/30/16 16:26; Admin Dose 650 MG; Start 10/29/16 at 13:00 Propranolol HCl 60 mg DAILY PO Last administered on 10/30/16 08:32; Admin Dose 60 MG; Start 10/30/16 at 08:30 Mental Status Exam Vital Signs Vital Signs Date Time Temp Pulse Resp B/P Pulse Ox O2 Delivery O2 Flow Rate FiO2 10/30/16 16:29 36.1 74 17 109/79 Appearance: Neat/well groomed Attitude: Pleasant, Cooperative Behavior: No unusual behavior Affect: Restricted Mood: Dysthymic, Anxious Thought Process/Associations: Logical/Sequential, Goal Directed Speech Production: Normal Speech Rate: Normal Speech Articulation: Normal Thought Content: Guilt Danger to Self/Suicidal Ideati: Passive Danger to Others: None Hallucinations: Auditory (Denies), Visual (Denies) Consciousness: Alert Orientation: Person, Place, Date, Situation Memory: Short Term Memory (Impaired), Skilled Nursing Memory (Impaired) Estimate Intellectual Function: Average Basis for IQ estimate: Word use/vocabulary, Educational history Attention/Concentration & Cogn: Impaired (slightly) Insight: Good Judgement: Good Result Diagram: 10/25/1652010/25/16520 Mental Health Plan The patient is a 60-year-old male who is admitted for suicidal ideation and alcohol intoxication withdrawal. He has a long history of difficulty dealing with anger and this is complicated by his history of trauma and resulting posttraumatic stress disorder. The patient is not currently engaged in [facility] and is somewhat oppositional regarding his treatment but is now willing to have outpatient [facility] treatment. The patient also consumes two pots of strong coffee per day, likely exacerbating his anxiety symptoms. The patient appears to be through his alcohol withdrawal and is exhibiting no signs of acute withdrawal syndrome. The patient appears to be experiencing some benefit from propranolol with decreased anger and aggression. The patient has tolerated moving the Wellbutrin to the morning, addition of escitalopram and is agreeable to using the clonazepam once daily with hydroxyzine for lower level anxiety. We discussed reducing bupropion as we have added escitalopram and bupropion had appeared ineffective and will try to decrease am activation. [place] I. 1. Posttraumatic stress disorder. 2. Alcohol use disorder. 3. Major depressive disorder versus alcohol-induced depressive disorder. [place] II. Deferred. [place] III. See past medical history. [place] IV. Moderate. [place] V. Global Assessment of Functioning 35. Medications Propranolol LA 60mg once a day Escitalopram 10 mg daily Bupropion XL 300 mg daily Melatonin 10 mg nightly Zolpidem 5-10 mg nightly as needed for insomnia Clonazepam 1 mg daily Hydroxyzine 50 mg every 4 hours as needed for anxiety or agitation Gabapentin 1200 mg in the morning and 600 mg at bedtime Acetaminophen 650mg with aspirin 325mg po q 6hr prn pain Nicotine 2 mg every 4 hours as needed for tobacco withdrawal Nicotine 21 mg patch topical daily vitamin daily Thiamine 100 mg daily Treatments 1. The patient is admitted to the inpatient unit and will be provided a safe and secure environment. 2. The patient is denying current active suicidality and is not in need of one-to-one at this time. As the patient still has a gun in the home, he was advised that prior to discharge, this should be removed from the house and kept with one of his sons, who are keeping the rest of his firearms locked up. 3. The patient is encouraged to participate with group and milieu activities. 4. The patient will be seen by the treatment team on a daily basis to assess symptom side effects and response to treatment. 5. The patient will be continued on his current medications except Decrease wellbutrin xl to 300mg daily 6. The patient will be continued on his thiamine 100 mg daily and multivitamin, but CIWA protocol/Valium will be discontinued. 7. Anticipated length of stay is 7-10 days. Jose Anton MD Oct 30, 2016 20:23
[2016-10-31] MEDS: buPROPion XL 300 mg ER24 Tablet PO SCH (07:57)
[2016-10-31] MEDS: Multivit-Miner-Folic Acid-Iron Tablet PO SCH (07:57)
[2016-10-31] MEDS: Propranolol LA 60 mg ER24 Capsule PO SCH (07:57)
--- NOTE | 2016-10-31 15:39 | NUR ---
Manager Internet/Counselor S:"I felt a tremendous improvement this morning over yesterday, but then I started feeling anxious again." O: Patient stated he did not have any SI at the moment, but did earlier that day. He denies any HI and AVH. He rated his anxiety at a 4 and his depression at a 7. He slept for 3.5+ hours. A: Patient stated that when he has SI, he thinks about riding his bike into an 18 kitchen. He stated that if it didn't look like a suicide, it would be easier on his children. He reported having some bad thoughts, and was anxious and upset about several patients that he has become friendly with, discharging today. He was anxious and fidgety while speaking to him, and continued to tap his foot. Patient stated he did not eat very much and felt queasy for parts of the day. P:Follow care plan and coordinate with outpatient providers.
--- NOTE | 2016-10-31 18:46 | NUR ---
Nursing Notes [id number] S: "I liked the new medication that the doctor gave me, (Propranolol), when I took Klonopin it would really wind me up, I do not feel that way with the new medication". O: Patient visible on unit, interactive appropriately with peers. Appropriately social. Attempts to be encouraging to other patients. A: Appropriate, cooperative, appeared more anxious as the shift progressed. P: Monitor for safety and response to treatment. Follow plan of care.
--- NOTE | 2016-10-31 18:49 | NUR ---
[facility] Day Shift Pt maintained behavioral control throughout the shift. Pt affect appears mostly euthymic. Pt spends most of the shift pacing the unit and interacting with peers. Pt is pleasant and appropriate when active on the unit. Pt has lightly participated in unit activities throughout the shift. Pt attended community meeting in the AM. Pt attended all meals and ate approx 100% of all meals.
[2016-10-31 19:25] VITALS: BP 125/82; PULSE 75; RESP 16
--- NOTE | 2016-10-31 19:46 | NUR ---
anxiety/meds: klonopin 1mg given prn anxiety.
--- NOTE | 2016-10-31 21:46 | PCM.PNPSY ---
Subjective Date of Service Oct 31, 2016 Subjective The patient reports that this morning was a "tremendous improvement" over yesterday. He reports he had some anger and was trying to walk it off. After receiving additional 10mg propranolol reported significant improvement in symptoms.He denied flashbacks but reported some intrusive thoughts. He denied side effects. Sleep: 3.5+ hours Appetite: still low but slowly improving Suicidal and homicidal ideation: passive, no plan/intent Auditory hallucinations: denies Visual hallucinations: denies Other Psychotic Symptoms: N/A Anxiety: "high, but less than yesterday." Depression: 11/12 Current Medications Current Medications Bupropion HCl 300 mg DAILY PO Last administered on 10/31/16 07:57; Admin Dose 300 MG; Start 10/31/16 at 08:30 Propranolol HCl 20 mg STK-MED ONCE .ROUTE Last administered on 10/31/16 13:46; Admin Dose 10 MG; Start 10/31/16 at 13:39; Stop 10/31/16 at 13:43; Status DC Propranolol HCl 60 mg DAILY PO Last administered on 10/31/16 07:57; Admin Dose 60 MG; Start 10/30/16 at 08:30 Mental Status Exam Vital Signs Vital Signs Date Time Temp Pulse Resp B/P Pulse Ox O2 Delivery O2 Flow Rate FiO2 10/31/16 19:25 36.1 75 16 125/82 Appearance: Neat/well groomed Attitude: Pleasant, Cooperative Behavior: No unusual behavior Affect: Restricted Mood: Dysthymic, Anxious Thought Process/Associations: Logical/Sequential, Goal Directed Speech Production: Normal Speech Rate: Normal Speech Articulation: Normal Thought Content: Guilt Danger to Self/Suicidal Ideati: Passive Danger to Others: None Hallucinations: Auditory (Denies), Visual (Denies) Consciousness: Alert Orientation: Person, Place, Date, Situation Memory: Short Term Memory (Impaired), Shipping Hand Memory (Impaired) Estimate Intellectual Function: Average Basis for IQ estimate: Word use/vocabulary, Educational history Attention/Concentration & Cogn: Impaired (slightly) Insight: Good Judgement: Good Result Diagram: 10/25/1652010/25/16520 Mental Health Plan The patient is a 60-year-old male who is admitted for suicidal ideation and alcohol intoxication withdrawal. He has a long history of difficulty dealing with anger and this is complicated by his history of trauma and resulting posttraumatic stress disorder. The patient is not currently engaged in [facility] and is somewhat oppositional regarding his treatment but is now willing to have outpatient [facility] treatment. The patient also consumes two pots of strong coffee per day, likely exacerbating his anxiety symptoms. The patient appears to be through his alcohol withdrawal and is exhibiting no signs of acute withdrawal syndrome. The patient appears to be experiencing some benefit from propranolol with decreased anger and aggression. The patient has tolerated moving the Wellbutrin to the morning, addition of escitalopram and is agreeable to using the clonazepam once daily with hydroxyzine for lower level anxiety. We discussed reducing bupropion as we have added escitalopram and bupropion had appeared ineffective and will try to decrease am activation. Patient reporting some anger/akathisia increase since switch to Inderal LA. [place] I. 1. Posttraumatic stress disorder. 2. Alcohol use disorder. 3. Major depressive disorder versus alcohol-induced depressive disorder. [place] II. Deferred. [place] III. See past medical history. [place] IV. Moderate. [place] V. Global Assessment of Functioning 35. Medications Propranolol LA 60mg once a day Propranolol 10mg po bid prn akathisia Escitalopram 10 mg daily Bupropion XL 300 mg daily Melatonin 10 mg nightly Zolpidem 5-10 mg nightly as needed for insomnia Clonazepam 1 mg daily Hydroxyzine 50 mg every 4 hours as needed for anxiety or agitation Gabapentin 1200 mg in the morning and 600 mg at bedtime Acetaminophen 650mg with aspirin 325mg po q 6hr prn pain Nicotine 2 mg every 4 hours as needed for tobacco withdrawal Nicotine 21 mg patch topical daily vitamin daily Thiamine 100 mg daily Treatments 1. The patient is admitted to the inpatient unit and will be provided a safe and secure environment. 2. The patient is denying current active suicidality and is not in need of one-to-one at this time. As the patient still has a gun in the home, he was advised that prior to discharge, this should be removed from the house and kept with one of his sons, who are keeping the rest of his firearms locked up. 3. The patient is encouraged to participate with group and milieu activities. 4. The patient will be seen by the treatment team on a daily basis to assess symptom side effects and response to treatment. 5. The patient will be continued on his current medications except Propranolol 10mg po bid prn, will add to LA dose if using routinely and increase LA to 80 6. The patient will be continued on his thiamine 100 mg daily and multivitamin, but CIWA protocol/Valium will be discontinued. 7. Anticipated length of stay is 7-10 days. Jose Anton MD Oct 31, 2016 21:46
--- NOTE | 2016-11-01 05:36 | NUR ---
nursing, nights, 11-7 s- i hate to ask you but can i have some coffee ? some aspirin for my arthritis ? some nicorette ? thanks. o- has appeared to sleep after 2200. up at 0445 with above requests. is currently socializing in the dinning room. assessed q 15 minutes. a- no apparent distress. p- monitor behavior/emotional state, quality, times and amount of sleep, use and effect of medication. edinson
[2016-11-01] MEDS: Propranolol LA 60 mg ER24 Capsule PO SCH (07:44)
[2016-11-01] MEDS: buPROPion XL 300 mg ER24 Tablet PO SCH (07:45)
[2016-11-01] MEDS: Multivit-Miner-Folic Acid-Iron Tablet PO SCH (07:45)
[2016-11-01 09:30] VITALS: BP 120/77; PULSE 69; RESP 19
--- NOTE | 2016-11-01 15:52 | NUR ---
Seal Mixing Operator/Counselor S:" Some of the other patients are making me real anxious." O: Patient did not report any SI, but stated he had some HI but no intent. Reported that they were just thoughts but no follow through intended. He did not have any AVH and rated his anxiety at a 10+. Patient stated he had a hard time identifying his depression. He slept for 7 hours and had eaten his breakfast. A: Patient stated that he was really triggered by two of the new patients. One of the new patients walked into his room uninvited. He was pacing the hallways at 8am, and continued to do so for a while. He was very anxious while meeting, and immediately following the meeting he requested his anxiety medication. He did attend structured group (mindfulness and guided meditation), and stated the meditation left him feeling relaxed, and he had forgotten how good it felt. He reported having [facility]. He was appropriate and cooperative, and has been out in the milieu for most of the day. P: Follow care plan and coordinate with outpatient providers. Addendum: 11/01/16 at 1954 by ASHLEY DUPONT [facility] Patient attended group the 11am group session and participated in all discussions.
--- NOTE | 2016-11-01 17:40 | PCM.PNPSY ---
Subjective Date of Service Nov 01, 2016 Subjective Patient states that as he ages he finds it more difficult to control his feelings of anger and anxiety. He reports increased anger in response to two new patients on the floor but admits that his agitation started after being told that he was not to be in the group room. Patient states that he felt "talked down to" but he realizes that may not even be what had happened. He was not experiencing agitation before that event and awoke in a good place. He believes he has "little reserve" for incidences as described. He reports Propranolol was effective yesterday with his agitation but that he forgot that was an option this morning. Amenable to taking Propranolol when reminded of his option. Patient would like a card to remind himself of his options when developing anger or anxiety. Sleep: 7hours Appetite: Good Suicidal and homicidal ideation: Denies SI. Admits to thoughts of harming others without intent. Auditory hallucinations: Denies Visual hallucinations: Denies Other Psychotic Symptoms: Denies Anxiety: 10+ Depression: unable to differentiate from anxiety Mental Status Exam Appearance: Neat/well groomed Attitude: Pleasant, Cooperative Behavior: Overtly anxious (Increased movement of feet) Affect: Restricted Mood: Dysthymic, Anxious Thought Process/Associations: Logical/Sequential, Goal Directed Speech Production: Normal Speech Rate: Normal Speech Articulation: Normal Thought Content: Negativistic Danger to Self/Suicidal Ideati: Passive Danger to Others: None Hallucinations: Auditory (Denies), Visual (Denies) Consciousness: Alert Orientation: Person, Place, Situation Memory: Short Term Memory (Impaired), Alf Memory (Impaired) Estimate Intellectual Function: Average Basis for IQ estimate: Word use/vocabulary, Educational history Attention/Concentration & Cogn: Impaired (slightly) Insight: Good Judgement: Good Mental Health Plan The patient is a 60-year-old male who is admitted for suicidal ideation and alcohol intoxication withdrawal. He has a long history of difficulty dealing with anger and this is complicated by his history of trauma and resulting posttraumatic stress disorder. The patient is not currently engaged in [facility] and is somewhat oppositional regarding his treatment but is now willing to have outpatient [facility] treatment. The patient also consumes two pots of strong coffee per day, likely exacerbating his anxiety symptoms. The patient appears to be through his alcohol withdrawal and is exhibiting no signs of acute withdrawal syndrome. The patient appears to be experiencing some benefit from propranolol with decreased anger and aggression. The patient has tolerated moving the Wellbutrin to the morning, addition of escitalopram and is agreeable to using the clonazepam once daily with hydroxyzine for lower level anxiety. Patient is amenable to clonazepam and propranolol for breakthrough anxiety/anger but has difficulty remembering these are options. Patient has some insight that his emotional reactions may be out of proportion to events but is unable to move past them. [place] I. 1. Posttraumatic stress disorder. 2. Alcohol use disorder. 3. Major depressive disorder versus alcohol-induced depressive disorder. [place] II. Deferred. [place] III. See past medical history. [place] IV. Moderate. [place] V. Global Assessment of Functioning 35. Medications Propranolol LA 60mg once a day Propranolol 10mg po bid prn akathisia Escitalopram 10 mg daily Bupropion XL 300 mg daily Melatonin 10 mg nightly Zolpidem 5-10 mg nightly as needed for insomnia Clonazepam 1 mg daily Hydroxyzine 50 mg every 4 hours as needed for anxiety or agitation Gabapentin 1200 mg in the morning and 600 mg at bedtime Acetaminophen 650mg with aspirin 325mg po q 6hr prn pain Nicotine 2 mg every 4 hours as needed for tobacco withdrawal Nicotine 21 mg patch topical daily vitamin daily Thiamine 100 mg daily Treatments 1. The patient is admitted to the inpatient unit and will be provided a safe and secure environment. 2. The patient is denying current active suicidality and is not in need of one-to-one at this time. As the patient still has a gun in the home, he was advised that prior to discharge, this should be removed from the house and kept with one of his sons, who are keeping the rest of his firearms locked up. 3. The patient is encouraged to participate with group and milieu activities. 4. The patient will be seen by the treatment team on a daily basis to assess symptom side effects and response to treatment. 5. The patient will be continued on his current medications 6. The patient will be continued on his thiamine 100 mg daily and multivitamin. CIWA protocol/Valium has been discontinued. 7. Will provide patient with a "go to" list for appropriate de-escalation activities when agitated. 8. Anticipated length of stay is 7-10 days. Attending Statement The patient was seen and examined together with Dr. Malloy on 11/01/16 and I agree with the history, exam and plan as outlined in the note above. Madelyn Galvin DO Nov 01, 2016 17:40 Jose Anton MD Nov 01, 2016 22:44
--- NOTE | 2016-11-01 17:53 | NUR ---
Nursing Dayshift: S: "My anxiety is a 10+!" O: Patient c/o increased anxiety and received propranolol 10 mg at 1023 with out effectiveness. Requested "Klonopin" and received 1 mg at 1116 with effectiveness "real good!" Good appetite at meals. Social with select peers. Some ambulating of the love especially after he noticed his notebook was missing out of his room. Staff found the notebook later and returned it to the patient. Verbalized his disgust toward the female patient who had removed it. A: Blunted affect. Anxious. P: CPOC. Monitor mood and behavior.
--- NOTE | 2016-11-01 20:49 | NUR ---
Observations 0900 - 0 Pt was flat but brighter when engaged, pacing hallways, and anxious. Pt was out of his room and social with peers and staff. Pt speech and eye contact was ok. Pt is pleasant and friendly upon approach. Pt is polite and cooperative. Pt maintained behavior control throughout the shift. Pt attended community meeting, group and unit activities. Pt set a daily goal. Pt attended meals in [facility] and ate 75-90% of his meals. Pt went out on patio with staff and peers to get some fresh air and sunshine. Pt was observed every 15 minutes throughout the shift as ordered.
--- NOTE | 2016-11-02 04:39 | NUR ---
Nursing Noc Pt presents pleasant and engaged in care plan. Reports frustration, anger and coping difficulties. Using medications appropriately. Denies SI at this time but, reported earlier that if he was released he would be suicidal. Noted to be first asleep at 2114, continuing to monitor, sleep,mood,and behavioral state. CP
[2016-11-02] MEDS: buPROPion XL 300 mg ER24 Tablet PO SCH (07:51)
[2016-11-02] MEDS: Multivit-Miner-Folic Acid-Iron Tablet PO SCH (07:51)
[2016-11-02] MEDS: Propranolol LA 60 mg ER24 Capsule PO SCH (08:50)
--- NOTE | 2016-11-02 13:30 | NUR ---
Nursing Dayshift: S: "I've got a pretty good support system around this area. I feel pretty good about it." O: Patient discussing his plans to connect with 12 Step group members once he has discharged to help him with his addiction issues. Has been up since start of shift. Social with peers. Irritable towards a select female peer who has been vulgar with him this AM. No further episodes. Eating well at [facility]. C/O increased anxiety and received propranolol 10 mg at 0751 with some effectiveness. C/O left shoulder pain and right wrist pain receiving Tylenol 650 mg, aspirin 325 mg, and hydroxyzine 50 mg all at 0912. Denied effectiveness. MD aware. Anxiety a 10/13. Depression a 06/15. Denies harmful thoughts and hallucinations. A: Social. Approachable. P: CPOC. Monitor mood and behavior.
[2016-11-02 14:10] VITALS: BP 109/77; PULSE 61; RESP 16
--- NOTE | 2016-11-02 14:18 | PCM.PNPSY ---
Subjective Date of Service Nov 02, 2016 Subjective Patient states that he is doing well today and that today is is "First day feeling good". He believes that his medication "must be kicking in" as there were several incidences with other patients that he felt that previously would have ruined his day. He feels he is not yet ready for discharge but was willing to discuss medication management upon discharge as well as safety precautions such as continuing to have his son manage his firearms. Patient requests medications be as simple as possible as he recognizes he has difficulty managing a complex regimen. He had previously filled prescriptions at [facility] and found them to be affordable. He reports having missed an doctor' s appointment on October 31 as he was here. When patient was reminded that the November holiday was approaching, he stated that he hates said holiday and usually deals with it by "hole-ing up at home" and "trying to not hear the sounds". Sleep: 6.75- "good, I slept in past light" Appetite: better Suicidal and homicidal ideation: denies Auditory hallucinations: denies Visual hallucinations: denies Other Psychotic Symptoms: denies Anxiety: 6 to 7 out of 10, considered reasonable by patient Mood: 7 to 8 out of 10 where 10 is a great mood Current Medications Current Medications Discontinue Propranolol HCl 10 mg BID PRN PO Last administered on 11/02/16t 07: 51; Admin Dose 10 MG; Start 10/31/16 at 17:25 Start Inderal LA 80 mg PO Daily Mental Status Exam Appearance: Neat/well groomed Attitude: Pleasant, Cooperative Behavior: Overtly anxious (Continues to move feet but no hand wringing) Affect: Restricted Mood: Dysthymic, Anxious (Improved over yesterday) Thought Process/Associations: Logical/Sequential, Goal Directed Speech Production: Normal Speech Rate: Normal Speech Articulation: Normal Thought Content: Appropriate Danger to Self/Suicidal Ideati: None Danger to Others: None Hallucinations: Auditory (Denies), Visual (Denies) Consciousness: Alert Orientation: Person, Place, Situation Memory: Short Term Memory (Impaired), [employer] Memory (Impaired) Estimate Intellectual Function: Average Basis for IQ estimate: Word use/vocabulary, Educational history Attention/Concentration & Cogn: Impaired (slightly) Insight: Good Judgement: Good Mental Health Plan The patient is a 60-year-old male who is admitted for suicidal ideation and alcohol intoxication withdrawal. He has a long history of difficulty dealing with anger and this is complicated by his history of trauma and resulting posttraumatic stress disorder. The patient is not currently engaged in [facility] and is somewhat oppositional regarding his treatment but is now willing to have outpatient [facility] treatment. The patient also consumes two pots of strong coffee per day, likely exacerbating his anxiety symptoms. The patient appears to be through his alcohol withdrawal and is exhibiting no signs of acute withdrawal syndrome. The patient appears to be experiencing benefit from propranolol with decreased anger and aggression. The patient has tolerated moving the Wellbutrin to the morning, addition of escitalopram and is agreeable to using the clonazepam once daily with hydroxyzine for lower level anxiety. Patient is amenable to clonazepam for breakthrough anxiety/anger. Patient has some insight that his emotional reactions may be out of proportion but has difficulty knowing when they are appropriate and when they are not. Patient has difficulty remembering his options for anger/anxiety de-escalation. [place] I. 1. Posttraumatic stress disorder. 2. Alcohol use disorder. 3. Major depressive disorder versus alcohol-induced depressive disorder. [place] II. Deferred. [place] III. See past medical history. [place] IV. Moderate. [place] V. Global Assessment of Functioning 35. Medications Propranolol LA 60mg once a day with 10mg po bid Escitalopram 10 mg daily Bupropion XL 300 mg daily Melatonin 10 mg nightly Zolpidem 5-10 mg nightly as needed for insomnia Clonazepam 1 mg daily Hydroxyzine 50 mg every 4 hours as needed for anxiety or agitation Gabapentin 1200 mg in the morning and 600 mg at bedtime Acetaminophen 650mg with aspirin 325mg po q 6hr prn pain Nicotine 2 mg every 4 hours as needed for tobacco withdrawal Nicotine 21 mg patch topical daily vitamin daily Thiamine 100 mg daily Treatments 1. The patient is admitted to the inpatient unit and will be provided a safe and secure environment. 2. The patient is denying current active suicidality and is not in need of one-to-one at this time. As the patient still has a gun in the home, he was advised that prior to discharge, this should be removed from the house and kept with one of his sons, who are keeping the rest of his firearms locked up. Patient reports this has occurred. 3. The patient is encouraged to participate with group and milieu activities. 4. The patient will be seen by the treatment team on a daily basis to assess symptom side effects and response to treatment. 5. The patient will stop Propranolol LA 60mg PO daily, stop Propranolol 10mg BID prn PO, and start Propranolol LA 80mg PO Daily, 6. The patient will be continued on his thiamine 100 mg daily and multivitamin. CIWA protocol/Valium has been discontinued. 7. Provided patient with a "go to" list for appropriate de-escalation activities when agitated. 8. Will need to develop a plan for patient to avoid and manage agitation on November 06. 9. As outpatient, recommend slow tapering of Wellbutrin when stable. 10. Anticipated length of stay is 7-10 days. Attending Statement The patient was seen and examined together with Dr. Malloy on 11-02-16 and I have added additional information to the note above. Madelyn Galvin DO Nov 02, 2016 14:18 Jose Anton MD Nov 02, 2016 21:55
--- NOTE | 2016-11-02 16:38 | NUR ---
[facility] Day Shift Pt affect and behavior unchanged from previous shifts. Pt maintained behavioral control throughout the shift. Pt affect appears mostly euthymic. Pt spends most of the shift pacing the unit and interacting with peers. Pt is pleasant and appropriate when active on the unit. Pt has lightly participated in unit activities throughout the shift. Pt attended community meeting in the AM. Pt attended all meals and ate approx 100% of all meals.
--- NOTE | 2016-11-03 03:29 | NUR ---
Nursing Noc Pt interacting with staff and patients appropriately, but noted to present with anger when contradicted and was able to self control quickly with staff support. Possible discharge today. Taking medications as indicated. Reported bad dream and awakened requesting medications to assist him to get back to sleep. Continuing to monitor mood, behavior, and emotional state by Q15 minute safety checks. CP
[2016-11-03] MEDS: Propranolol LA 60 mg ER24 Capsule PO SCH (08:20)
[2016-11-03] MEDS: buPROPion XL 300 mg ER24 Tablet PO SCH (08:23)
[2016-11-03] MEDS: Multivit-Miner-Folic Acid-Iron Tablet PO SCH (08:23)
[2016-11-03 10:55] VITALS: BP 112/73; PULSE 71; RESP 19
--- NOTE | 2016-11-03 13:54 | NUR ---
Nursing Note [id number] Behavior, Medications S/O: Pt c/o left foot pain. Pt states he has constant pain. He is c/o pain at a "10" on a scale of 1-10/10 the worst. Pt has no bruising or open wounds. Foot appears normal. Pt reports he felt something "pop" in his foot over 1 year ago. Pt has had x-rays, but he reports they found no problems. Pt has had Tylenol & aspirin this afternoon for pain, but states it hasn't been helpful. Hospitalist referral sent out to evaluate cause of pain. Pt has been out in milieu with peers watching television. Conversation tracking clear & organized with normal rate & rhythm. Pt has multiple needs during the day. A: Pt has multiple needs with poor coping skills. P: Provide supportive environment. Monitor medications & effects. Hospitalist to see pt.
--- NOTE | 2016-11-03 15:19 | NUR ---
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 It was combat related." O: Patient denied any SI, HI, no AVH and rated both his depression and anxiety as high. A:Patient stated that his appetite was much better today, but he has been feeling very anxious and depressed. He said that some of the other patients he's gotten close to being discharged is contributing to his high anxiety. He has been out in the milieu and was out on the patio. He stated that some of the other patients are also increasing his level of anxiety. He has been friendly and outgoing, and generally pretty cooperative. He did complain of foot pain. Nursing staff is following up. P: Follow care plan and coordinate with outpatient providers. Addendum: 11/03/16 at 1547 by [facility] Patient attended the group session and participated in all discussions.
--- NOTE | 2016-11-03 16:03 | PCM.PNPSY ---
Subjective Date of Service Nov 03, 2016 Subjective The patient reported being upset with a peer who was wearing sunglasses this morning and felt that he was taunting him. He was also able to acknowledge that the patient may be quite mentally ill. He reports that he may have some residual anger over an interaction with a nurse last night and felt that they may have made a medication error and missed one of his medications. We discussed that we will investigate potential medication error. The patient reported some concern about cost of medications but he plans to continue to go to [facility] where he can receive reduced medication. The patient stated he did not feel quite stable enough to return home but perhaps tomorrow or Saturday. He is denying side effects. Sleep: 4.25 hours, head trauma related nightmare. Appetite: "Much better" Suicidal and homicidal ideation: denies Auditory hallucinations: denies Visual hallucinations: denies Other Psychotic Symptoms: denies Anxiety: "High" Mood: "Until last night, real well." Current Medications Current Medications Propranolol HCl 10 mg BID PO Last administered on 11/03/16 08:21; Admin Dose 10 MG; Start 11/02/16 at 20:30 Propranolol HCl 10 mg ONCE ONCE PO Last administered on 11/02/16 15:45; Admin Dose 10 MG; Start 11/02/16 at 15:05; Stop 11/02/16 at 15:13; Status DC Propranolol HCl 60 mg DAILY PO Last administered on 11/03/16 08:20; Admin Dose 60 MG; Start 11/03/16 at 08:30 Mental Status Exam Appearance: Neat/well groomed Attitude: Pleasant, Cooperative Behavior: Overtly anxious Affect: Restricted Mood: Dysthymic, Anxious Thought Process/Associations: Logical/Sequential, Goal Directed Speech Production: Normal Speech Rate: Normal Speech Articulation: Normal Thought Content: Appropriate Danger to Self/Suicidal Ideati: None Danger to Others: None Hallucinations: Auditory (Denies), Visual (Denies) Consciousness: Alert Orientation: Person, Place, Situation Memory: Short Term Memory (Impaired), [employer]ist Memory (Impaired) Estimate Intellectual Function: Average Basis for IQ estimate: Word use/vocabulary, Educational history Attention/Concentration & Cogn: Impaired (slightly) Insight: Good Judgement: Good Mental Health Plan The patient is a 60-year-old male who is admitted for suicidal ideation and alcohol intoxication withdrawal. He has a long history of difficulty dealing with anger and this is complicated by his history of trauma and resulting posttraumatic stress disorder. The patient is not currently engaged in [facility] and is somewhat oppositional regarding his treatment but is now willing to have outpatient [facility] treatment. The patient also consumes two pots of strong coffee per day, likely exacerbating his anxiety symptoms. The patient appears to be through his alcohol withdrawal and is exhibiting no signs of acute withdrawal syndrome. The patient appears to be experiencing benefit from propranolol with decreased anger and aggression. The patient has tolerated moving the Wellbutrin to the morning, addition of escitalopram and is agreeable to using the clonazepam once daily with hydroxyzine for lower level anxiety. Patient is amenable to clonazepam for breakthrough anxiety/anger. Patient has some insight that his emotional reactions may be out of proportion but has difficulty knowing when they are appropriate and when they are not. Patient has difficulty remembering his options for anger/anxiety de-escalation. Patient appears to be stabilizing and will likely be ready for discharge in the next few days. [place] I. 1. Posttraumatic stress disorder. 2. Alcohol use disorder. 3. Major depressive disorder versus alcohol-induced depressive disorder. [place] II. Deferred. [place] III. See past medical history. [place] IV. Moderate. [place] V. Global Assessment of Functioning 40. Medications Propranolol LA 60mg once a day with 10mg po bid Escitalopram 10 mg daily Bupropion XL 300 mg daily Melatonin 10 mg nightly Zolpidem 5-10 mg nightly as needed for insomnia Clonazepam 1 mg daily Hydroxyzine 50 mg every 4 hours as needed for anxiety or agitation Gabapentin 1200 mg in the morning and 600 mg at bedtime Acetaminophen 650mg with aspirin 325mg po q 6hr prn pain Nicotine 2 mg every 4 hours as needed for tobacco withdrawal Nicotine 21 mg patch topical daily vitamin daily Thiamine 100 mg daily Treatments 1. The patient is admitted to the inpatient unit and will be provided a safe and secure environment. 2. The patient is denying current active suicidality and is not in need of one-to-one at this time. As the patient still has a gun in the home, he was advised that prior to discharge, this should be removed from the house and kept with one of his sons, who are keeping the rest of his firearms locked up. Patient reports this has occurred. 3. The patient is encouraged to participate with group and milieu activities. 4. The patient will be seen by the treatment team on a daily basis to assess symptom side effects and response to treatment. 5. The patient will stop Propranolol LA 60mg PO daily, stop Propranolol 10mg BID prn PO, and start Propranolol LA 80mg PO Daily, 6. The patient will be continued on his thiamine 100 mg daily and multivitamin. 7. Provided patient with a "go to" list for appropriate de-escalation activities when agitated. 8. Will need to develop a plan for patient to avoid and manage agitation on November 06. 9. As outpatient, recommend slow tapering of Wellbutrin when stable. 10. Anticipated length of stay is 7-10 days. Jose Anton MD Nov 03, 2016 16:03
--- NOTE | 2016-11-03 18:00 | PCM.CHPMED ---
Subjective Date of Service: Nov 03, 2016 Provider requesting consult: Jose Anton MD Primary Physician: Admitting Physician: Dileep Jimenez MD Primary Care Physician: Filiberto Oh MD Attending Physician: Dileep Jimenez MD Chief Complaint: Chief Complaint: Asked by Dr. Anton to evaluate this 60-year-old man with intermittent severe left metatarsal pain. History of Present Illness: The patient experienced excruciating left forefoot pain this morning after lying still with his feet elevated and calves propped up on the arm rest of the chair. There is no trauma today. His feet were relatively still at the time of onset of pain. He describes a popping sensation at the time of onset of pain. It lasted for several minutes before abating gradually. At the time of my evaluation he has no significant pain. There is a great deal of distress by the severity of this pain, and is frustrated that previous medical evaluation has not helped him at all. He is not requesting pain medications. Patient reports 1.5 years of intermittent left forefoot pain, which began without specific traumatic event. He first noticed this pressing pedal on his motorcycle. Since that time it has been intermittent, but recurring on a weekly or monthly basis. The pain is sharp like "ice pick" but is not burning tingling or neuropathic in character. It is localized to the medial distal first metatarsal bone. It is not localized to the joint , plantar, dorsal or lateral areas of the fore foot. Does not radiate. Previously saw evaluation at the [place] [facility] but "fired them "did not receive further assessment. He is very active with hiking, and does not experience this typically with such activity. He has had no fever redness or swelling of any foot. He feels there is a bony abnormality in the bone is "split" but has a hollowed out region in the middle of the metatarsal bone. He states that sometimes forefoot looks dark in color but not bruised. Review of Systems: Notably no fever or persistent inflammatory pain. He has no history of gout or arthritis. No history of neuropathy or diabetes. H Past Medical History # Alcohol abuse # PTSD, depression, personality disorder # multiple injuries Home Medications Bupropion, gabapentin, clonazepam, excedrin Allergies: Coded Allergies: No Known Allergies (Unverified Allergy, Unknown, 10/24/16) Family History Family History No musculoskeletal, or collagen disorders Social History Hx Alcohol Use: Yes (twelve 16 oz cans a day")Hx Substance Use: Yes Smoking Status: Unknown if Ever Smoker Living Arrangement: with Family Exam Vital Signs Vital Sign - Last Date Time Temp Pulse Resp B/P Pulse Ox O2 Delivery O2 Flow Rate FiO2 11/03/16 10:55 35.6 71 19 112/73 General: Well-nourished man, decreased affect, no acute distress HEENT: sclerae anicteric, oral mucosa moist Chest: Comfortable respirations Extremities: No pedal edema, no erythema or swelling Left foot passive range of motion was active, nondistended Area pain local to emery to mid first metatarsal shaft. No palpable bony deformity Neuro: motor strength 5/5 ankle dorsiflexion and plantar flexion, EHL strength normal, coordination normal, Gait is normal Vascular: Pulses intact in feet Assessment & Plan Assessment Mr. Howell seems to have been intermittent and recurrent left forefoot pain syndrome. The sharp pain without neuropathic features most suggestive of EHL tendon pain or possibly metatarsalgia. He localizes this to the first left metatarsal, where I do not not detect bony abnormality. Is full range of motion and no pain at this time. There are no signs of acute inflammation; hence, gout, arthritis, bone fracture or soft tissue infection are ruled out. Currently he is able to ambulate normally hence no urgent therapy as needed. I recommended nonsteroidal analgesics if these are helpful, but he dismissed this idea. I do not think this pain should be treated with opioids. I suggested that he be referred to podiatry clinic. [facility] is [facility] will need to present to his primary care provider there upon discharge. At present, podiatry consult is not warranted. Should he develop recurrent pain with difficulty ambulating and I would consider calling podiatry after the weekend. Hospital service will not follow regularly but may be contacted should he have recurrence of this intermittent and recurrent problem. Problems: Pain Evaluation: Adequate Pain Control GI Prophylaxis: Not indicated VTE Mechanical Devices: Intermittant Pneumatic CD Resuscitation Status: CPR: Attempt Resuscitation Time spent 25 minutes Freddy Biggs MD Nov 03, 2016 18:00
--- NOTE | 2016-11-03 18:47 | NUR ---
Observations 0900 - 0 Pt was flat but brighter when engaged, pacing hallways, and anxious about discharge tomorrow. Pt was out of his room and social with select peers and staff in the morning then he was irritable and isolative in the afternoon and early evening. Pt speech and eye contact was ok. Pt is pleasant and friendly upon approach. Pt is polite and cooperative. Pt maintained behavior control throughout the shift. Pt attended community meeting but refused to go to group. Pt set a daily goal. Pt attended meals in [facility] and ate 75% and 100% of his meals. Pt was observed every 15 minutes throughout the shift as ordered.
--- NOTE | 2016-11-03 21:22 | NUR ---
NURSING NOTE [id number] Mood: "I'm pissed off" Affect: irritable, dismissive Behavior: pacing up and down halls at start of shift, asked for PRNs for anxiety, received Vistaril 50 mg but then asked for propranolol and became upset when told his PRN dose had been d/cd and cursed at this machine sign writer. Dose was reordered and pt. given 10 mg propranolol PRN @ 16:30. Pt. also continues to c/o L foot pain and after being assessed by the hospitalist exclaimed "nothing is helping, no one can help me, what's the point!" He took a nap afterward. Attended wrap-up group. Requested to take his HS meds late d/t napping into the evening. Thought processes: pt. is perseverating on his pain this evening and reports it is 10/10 and "nothing helps". Endorsed depression and anxiety. Denied SI. PRNs Propranolol 10 mg @ 16:30
--- NOTE | 2016-11-04 05:04 | NUR ---
Nursing Noc Pt has not c/o of pain or SI this shift. Appeared withdrawn and sullen or angry. Took all medications as prescribed and slept well though the night. Noted by Q15 minute safety checks. Plan for discharge home today. Continuing to monitor mood, behavior and emotional state.
[2016-11-04] MEDS: Multivit-Miner-Folic Acid-Iron Tablet PO SCH (07:52)
[2016-11-04] MEDS: buPROPion XL 300 mg ER24 Tablet PO SCH (07:57)
[2016-11-04] MEDS: Propranolol LA 60 mg ER24 Capsule PO SCH (07:57)
--- NOTE | 2016-11-04 13:43 | NUR ---
Nursing Note [id number] Behavior, Mood S/O: Pt has good appetite. Pt cooperative & pleasant. He states, "I have a hard time seeing these young ones with so many problems. It breaks my heart....The past 2 days have been hard on me....I'm not sure if I should go home today or not." Pt rated his mood at a "2" on a scale of 1-10/10 the best. He became frustrated with another male on the unit. He requested Klonopin at 1011. Pt reports his mood improved to a "5." Discussed coping skills he can use at home. Pt attended groups & activities. Conversation tracking clear & organized with normal rate & rhythm. A: Pt is nervous about d/c. P: Provide supportive environment. Monitor medications & effects.
[2016-11-04 16:12] VITALS: BP 125/81; PULSE 64; RESP 20
--- NOTE | 2016-11-04 18:33 | NUR ---
[facility] Day Shift Pt affect and behavior unchanged from previous shifts. Pt maintained behavioral control throughout the shift. Pt affect appears mostly euthymic. Pt spends most of the shift pacing the unit and interacting with peers. Pt is pleasant and appropriate when active on the unit, though pt does express some frustration with specific peers. Pt has lightly participated in unit activities throughout the shift. Pt attended community meeting in the AM and all group activities throughout the shift. Pt attended all meals and ate approx 100% of all meals.
--- NOTE | 2016-11-04 23:02 | PCM.PNPSY ---
Subjective Date of Service Nov 04, 2016 Subjective The patient reported feeling upset last night over assessment about his ankle and did not trust the recommendation. Discussed with patient assessment and he reported feeling better about situation. He reported hitting mattress and swinging pillow at wall but caused no damage. He indicated peer is somewhat taunting him (and this appears to be the case). Discussed stress relaxation and need for stretching exercises given habit of pacing. Patient indicated fear of relapse if he were to discharge prior or on the 06 of November given triggers. He is denying side effects. Sleep: 5.5 hours Appetite: "Improved" Suicidal and homicidal ideation: denies Auditory hallucinations: denies Visual hallucinations: denies Other Psychotic Symptoms: denies Anxiety: "High" Mood: "Until last night, real well." (same response as previous day) Current Medications Current Medications Propranolol HCl 10 mg BID PRN PO Last administered on 11/04/16 15:45; Admin Dose 10 MG; Start 11/03/16 at 16:25 Propranolol HCl 60 mg DAILY PO Last administered on 11/04/16 07:57; Admin Dose 60 MG; Start 11/03/16 at 08:30 Mental Status Exam Vital Signs Vital Signs Date Time Temp Pulse Resp B/P Pulse Ox O2 Delivery O2 Flow Rate FiO2 11/04/16 16:12 36.8 64 20 125/81 Appearance: Neat/well groomed Attitude: Pleasant, Cooperative Behavior: Overtly anxious Affect: Restricted Mood: Dysthymic, Anxious Thought Process/Associations: Logical/Sequential, Goal Directed Speech Production: Normal Speech Rate: Normal Speech Articulation: Normal Thought Content: Appropriate Danger to Self/Suicidal Ideati: None Danger to Others: None Hallucinations: Auditory (Denies), Visual (Denies) Consciousness: Alert Orientation: Person, Place, Situation Memory: Short Term Memory (Impaired), Data Security Administrator Memory (Impaired) Estimate Intellectual Function: Average Basis for IQ estimate: Word use/vocabulary, Educational history Attention/Concentration & Cogn: Impaired (slightly) Insight: Good Judgement: Good Mental Health Plan The patient is a 60-year-old male who is admitted for suicidal ideation and alcohol intoxication withdrawal. He has a long history of difficulty dealing with anger and this is complicated by his history of trauma and resulting posttraumatic stress disorder. The patient is not currently engaged in [facility] and is somewhat oppositional regarding his treatment but is now willing to have outpatient [facility] treatment. The patient also consumes two pots of strong coffee per day, likely exacerbating his anxiety symptoms. The patient appears to be through his alcohol withdrawal and is exhibiting no signs of acute withdrawal syndrome. The patient appears to be experiencing benefit from propranolol with decreased anger and aggression. The patient has tolerated moving the Wellbutrin to the morning, addition of escitalopram and is agreeable to using the clonazepam once daily with hydroxyzine for lower level anxiety. Patient is amenable to clonazepam for breakthrough anxiety/anger. Patient has some insight that his emotional reactions may be out of proportion but has difficulty knowing when they are appropriate and when they are not. Patient has difficulty remembering his options for anger/anxiety de-escalation. Discussed increased irritability in afternoon and evening and discussed activating effect of bupropion. Patient agreeable to decrease am dose. Patient also supported PT assessment for strengthening exercises for EHL tendonitis. [place] [employer] [place] I. 1. Posttraumatic stress disorder. 2. Alcohol use disorder. 3. Major depressive disorder versus alcohol-induced depressive disorder. [employer] [place] [employer] [place] II. Deferred. [employer] [place] [employer] [place] III. See past medical history. [employer] [place] [employer] [place] IV. Moderate. [employer] [place] V. Global Assessment of Functioning 40. Medications Propranolol LA 60mg once a day with 10mg po bid + PRN Escitalopram 10 mg daily Bupropion XL 150 mg daily Melatonin 10 mg nightly Zolpidem 5-10 mg nightly as needed for insomnia Clonazepam 1 mg daily Hydroxyzine 50 mg every 4 hours as needed for anxiety or agitation Gabapentin 1200 mg in the morning and 600 mg at bedtime Acetaminophen 650mg with aspirin 325mg po q 6hr prn pain Nicotine 2 mg every 4 hours as needed for tobacco withdrawal Nicotine 21 mg patch topical daily vitamin daily Thiamine 100 mg daily Treatments 1. The patient is admitted to the inpatient unit and will be provided a safe and secure environment. 2. The patient is denying current active suicidality and is not in need of one-to-one at this time. As the patient still has a gun in the home, he was advised that prior to discharge, this should be removed from the house and kept with one of his sons, who are keeping the rest of his firearms locked up. Patient reports this has occurred. 3. The patient is encouraged to participate with group and milieu activities. 4. The patient will be seen by the treatment team on a daily basis to assess symptom side effects and response to treatment. 5. The patient will stop Propranolol LA 60mg PO daily (with 10mg po bid as 80mg LA not available), stop Propranolol 10mg BID prn 6. The patient will be continued on his thiamine 100 mg daily and multivitamin. 7. Provided patient with a "go to" list for appropriate de-escalation activities when agitated. 8. Patient to discharge after November 06. 9. Reduce bupropion to 150mg 10 PT consult for exercises 11. Anticipated length of stay is 7-10 days. Jose Anton MD Nov 04, 2016 23:02
--- NOTE | 2016-11-05 06:17 | NUR ---
Nursing Noc Pt presents as pleasant, social and cooperative on the unit. He is frustrated with a male peer on the unit and expressed concern that this peer was behaving in a predatory manner towards the young female patients on the unit. Elias expressed that his prn Klonopin had helped him maintain his calm in a situation where he would "normally lose it." Pt participated in evening group. Took scheduled medication plus Ambien with a repeat. Pt had slept in intervals for a total 5.75 hours.
[2016-11-05] MEDS: Multivit-Miner-Folic Acid-Iron Tablet PO SCH (09:04)
[2016-11-05] MEDS: buPROPion XL 150 mg ER24 Tablet PO SCH (09:04)
[2016-11-05] MEDS: Propranolol LA 60 mg ER24 Capsule PO SCH (09:05)
--- NOTE | 2016-11-05 11:16 | NUR ---
Physical Therapy: PT evaluation received for stretching and strengthening for EHL tendonitis. Pt is documented to be up and ambulating independently. Per chart review, pt has no acute PT needs. Recommend outpatient PT follow up for acute on chronic foot pain. ELZA notified this am. Addendum: 11/05/16 at 1429 by GEOVANY CHEN PT Received call from ELZA this pm requesting exercises for pt at request of . Provided handout of Great toe extension stretch, Great toe flexion/extension PROM, standing DF/toe extensor stretch and towel curls with toes with caution to perform gently and without pain. Recommend stopping any exercises that cause pain and follow up with outpatient PT after discharge.
--- NOTE | 2016-11-05 11:32 | PCM.PNPSY ---
Subjective Date of Service Nov 05, 2016 Subjective Patient states that he is having a good day and is feeling good about the tentative plan for discharge November 07 or . He feels the clonazepam works well for his anxiety and denies side effects. He does note that he has increased anxiety in the afternoons. Patient became slightly tearful when he was told the case therapist will be getting him an [facility] with [facility] within a week of discharge and expressed discomfort with the reaction. He shared that type of behavior was unacceptable growing up and showed insight that openly speaking about it was an improvement. He showed increased emotional expression today with smiling and laughing appropriately. He has finished making a dinosaur model he plans to give to his grandson. Sleep: 5.5hr Appetite: improving Suicidal and homicidal ideation: denies Auditory hallucinations: denies Visual hallucinations: denies Other Psychotic Symptoms: denies Anxiety: reduced Depression: mild Current Medications Current Medications Bupropion HCl 150 mg DAILY PO Last administered on 11/05/16t 09:04; Admin Dose 150 MG; Start 11/05/16 at 08:30 Mental Status Exam Appearance: Neat/well groomed Attitude: Pleasant, Cooperative Behavior: No unusual behavior Affect: Restricted (Although improved) Mood: Euthymic, Dysthymic Thought Process/Associations: Logical/Sequential, Goal Directed Speech Production: Normal Speech Rate: Normal Speech Articulation: Normal Thought Content: Appropriate Danger to Self/Suicidal Ideati: None Danger to Others: None Hallucinations: Auditory (Denies), Visual (Denies) Consciousness: Alert Orientation: Person, Place, Situation Memory: Short Term Memory (Impaired), Nursing Home Memory (Impaired) Estimate Intellectual Function: Average Basis for IQ estimate: Word use/vocabulary, Educational history Attention/Concentration & Cogn: Impaired (slightly) Insight: Good Judgement: Good Mental Health Plan The patient is a 60-year-old male who is admitted for suicidal ideation and alcohol intoxication withdrawal. He has a long history of difficulty dealing with anger and this is complicated by his history of trauma and resulting posttraumatic stress disorder. The patient is not currently engaged in [facility] and is somewhat oppositional regarding his treatment but is now willing to have outpatient [facility] treatment. The patient also consumes two pots of strong coffee per day, likely exacerbating his anxiety symptoms. The patient appears to be through his alcohol withdrawal and is exhibiting no signs of acute withdrawal syndrome. The patient appears to be experiencing benefit from propranolol with decreased anger and aggression. The patient has tolerated moving the Wellbutrin to the morning, addition of escitalopram and is agreeable to using the clonazepam once daily with hydroxyzine for lower level anxiety. Patient is amenable to clonazepam for breakthrough anxiety/anger. Patient continues to have more anxiety in the afternoon. Will taper Wellbutrin in hopes of decreasing said anxiety. [place] I. 1. Posttraumatic stress disorder. 2. Alcohol use disorder. 3. Major depressive disorder versus alcohol-induced depressive disorder. [place] II. Deferred. [place] III. See past medical history. [place] IV. Moderate. [place] V. Global Assessment of Functioning 40. Medications Propranolol LA 60mg once a day with 10mg po bid + PRN Escitalopram 10 mg daily Bupropion XL 150 mg daily Melatonin 10 mg nightly Zolpidem 5-10 mg nightly as needed for insomnia Clonazepam 1 mg daily Hydroxyzine 50 mg every 4 hours as needed for anxiety or agitation Gabapentin 1200 mg in the morning and 600 mg at bedtime Acetaminophen 650mg with aspirin 325mg po q 6hr prn pain Nicotine 2 mg every 4 hours as needed for tobacco withdrawal Nicotine 21 mg patch topical daily vitamin daily Thiamine 100 mg daily Treatments 1. The patient is admitted to the inpatient unit and will be provided a safe and secure environment. 2. The patient is denying current active suicidality and is not in need of one-to-one at this time. As the patient still has a gun in the home, he was advised that prior to discharge, this should be removed from the house and kept with one of his sons, who are keeping the rest of his firearms locked up. Patient reports this has occurred. 3. The patient is encouraged to participate with group and milieu activities. 4. The patient will be seen by the treatment team on a daily basis to assess symptom side effects and response to treatment. 5. The patient will stop Propranolol LA 60mg PO daily (with 10mg po bid as 80mg LA not available), stop Propranolol 10mg BID prn 6. The patient will be continued on his thiamine 100 mg daily and multivitamin. 7. Provided patient with a "go to" list for appropriate de-escalation activities when agitated. 8. Patient to discharge after November 06. 9. Reduce bupropion to 150mg 10 PT consult for exercises 11. Anticipated length of stay is 7-10 days. Attending Statement The patient was seen and examined together with Dr. Malloy on 11/05/16 and I agree with the history, exam and plan as outlined in the note above. Gama-Madelyn Samuel DO Nov 05, 2016 11:32 Jose Anton MD Nov 05, 2016 21:44
--- NOTE | 2016-11-05 15:28 | NUR ---
Computer System Technician/Counselor S:"When I'm calmer, I can think better." O: Patient did not express any HI or SI, no AVH, and rated both his anxiety and depression as low. A: Patient was walking the halls this morning, but stated that he felt much calmer than he has before. His appetite is picking up. He stated that before meditation in group he was very riled up and anxious, but that group was able to help him slow his breathing down. He was also very grateful towards staff for their care. P:Follow care plan and coordinate with outpatient providers
--- NOTE | 2016-11-05 17:11 | NUR ---
Nursin to 1899 S: Now that I know that it isn't a torn tendon, I will continue exercising it as I have for the last year. O: Elias has been in his room resting between attending groups. He was responsive on approach. He stated "Still depressed" when asked to rate his depression. Denied SI. At 1300, as he was going to group, he asked for aspirin, tylenol and klonopin. He was not due to Tylenol but was administered ASA 325 mg and Klonopin 1 mg. At 1420, he stated that both had helped. "Less anxious". Left foot pain: Pt reported that he is relieved that pain is from tendonitis, not "torn tendon". Consult by phone with PT resulted in pt receiving exercise regimen for this situation. He was advised to do exercises but if his ankle became more painful, he was to not continue with exercises. P: Continue to support toward discharge on . Addendum: 11/05/16 at 1850 by KALPESH LEMUS RN Amended: Links added.
[2016-11-05 17:55] VITALS: BP 113/79; PULSE 57; RESP 17
--- NOTE | 2016-11-06 04:30 | NUR ---
Noc shift note [id number] Pt alert and oriented x 3;cooperative and pleasant with staff and peers. Pt sat in the dayroom with peers and watched a couple of movies while conversing without behavioral issues noted. Pt requested Ambien for insomnia and slept for about 4hrs and then he woke up with c/o restlessness and anxiety. Pt given Propranolol and Vistaril and he returned back to bed. Continue to monitor for behavioral issues, mood changes, and emotional well being by implementing Q15 minute checks for safety.
[2016-11-06 08:15] VITALS: BP 122/77; PULSE 60; RESP 18
[2016-11-06] MEDS: buPROPion XL 150 mg ER24 Tablet PO SCH (08:17)
[2016-11-06] MEDS: Multivit-Miner-Folic Acid-Iron Tablet PO SCH (08:17)
[2016-11-06] MEDS: Propranolol LA 60 mg ER24 Capsule PO SCH (08:27)
--- NOTE | 2016-11-06 15:03 | NUR ---
Drafting Teacher/Counselor S: I'm doing pretty good. Panicky about the Wellbutrin, and I've been ruminating." O: Patient did not report any SI or HI, no AVH, and stated that both his anxiety and depression were up, but was not able to designate a number. A:Patient stated that he was ruminating on a lot of childhood interactions with his father today, but did not identify any particular trigger. Additionally, he reported some issues with another patient, but stated that they were taken care of. He has been out in the milieu and on the patio, and stated he will be ok in dealing with the fireworks. He was provided some ear plugs, in case the noise becomes too much. He was cooperative and friendly. P: Follow care plan and coordinate with outpatient providers.
--- NOTE | 2016-11-06 17:45 | PCM.PNPSY ---
Subjective Date of Service Nov 06, 2016 Subjective The patient reports that he is concerned about having ruminations now that he is decreased Wellbutrin this morning. Discussed that the medication does not change blood levels that significantly especially since it is still the morning. He indicated that it might be psychosomatic. He reported having problems with the of November in general which reminded him of his childhood trauma. Sleep: 6.5hr Appetite: "Not hungry" Suicidal and homicidal ideation: denies Auditory hallucinations: denies Visual hallucinations: denies Other Psychotic Symptoms: denies Anxiety/Depression: Increased somewhat due to the fourth. Current Medications Current Medications Bupropion HCl 150 mg DAILY PO Last administered on 11/06/16t 08:17; Admin Dose 150 MG; Start 11/05/16 at 08:30 Mental Status Exam Appearance: Neat/well groomed Attitude: Pleasant, Cooperative Behavior: No unusual behavior Affect: Restricted (Although improved) Mood: Euthymic, Dysthymic Thought Process/Associations: Logical/Sequential, Goal Directed Speech Production: Normal Speech Rate: Normal Speech Articulation: Normal Thought Content: Appropriate Danger to Self/Suicidal Ideati: None Danger to Others: None Hallucinations: Auditory (Denies), Visual (Denies) Consciousness: Alert Orientation: Person, Place, Situation Memory: Short Term Memory (Impaired), Supervisory Historian Memory (Impaired) Estimate Intellectual Function: Average Basis for IQ estimate: Word use/vocabulary, Educational history Attention/Concentration & Cogn: Impaired (slightly) Insight: Good Judgement: Good Mental Health Plan The patient is a 60-year-old male who is admitted for suicidal ideation and alcohol intoxication withdrawal. He has a long history of difficulty dealing with anger and this is complicated by his history of trauma and resulting posttraumatic stress disorder. The patient is not currently engaged in [facility] and was somewhat oppositional regarding his treatment but is now willing to have outpatient [facility] treatment. The patient also consumes two pots of strong coffee per day, likely exacerbating his anxiety symptoms. The patient appears to be through his alcohol withdrawal and is exhibiting no signs of acute withdrawal syndrome. The patient appears to be experiencing benefit from propranolol with decreased anger and aggression. The patient has tolerated moving the Wellbutrin to the morning, addition of escitalopram and is agreeable to using the clonazepam once daily with hydroxyzine for lower level anxiety. Patient is amenable to clonazepam for breakthrough anxiety/anger. Patient has some insight that his emotional reactions may be out of proportion but has difficulty knowing when they are appropriate and when they are not. Patient has difficulty remembering his options for anger/anxiety de-escalation. Discussed increased irritability in afternoon and evening and discussed activating effect of bupropion. Patient agreeable to decrease am dose. Patient also supported PT assessment for strengthening exercises for EHL tendonitis. Continue with current plan and patient given earplugs for noise tonight. Patient encouraged to reassess symptoms tomorrow. Cowley Cowley I. 1. Posttraumatic stress disorder. 2. Alcohol use disorder. 3. Major depressive disorder versus alcohol-induced depressive disorder. Cowley II. Deferred. Cowley III. See past medical history. Cowley IV. Moderate. Cowley V. Global Assessment of Functioning 40. Medications Propranolol LA 60mg once a day with 10mg po bid + PRN Escitalopram 10 mg daily Bupropion XL 150 mg daily Melatonin 10 mg nightly Zolpidem 5-10 mg nightly as needed for insomnia Clonazepam 1 mg daily Hydroxyzine 50 mg every 4 hours as needed for anxiety or agitation Gabapentin 1200 mg in the morning and 600 mg at bedtime Acetaminophen 650mg with aspirin 325mg po q 6hr prn pain Nicotine 2 mg every 4 hours as needed for tobacco withdrawal Nicotine 21 mg patch topical daily vitamin daily Thiamine 100 mg daily Treatments 1. The patient is admitted to the inpatient unit and will be provided a safe and secure environment. 2. The patient is denying current active suicidality and is not in need of one-to-one at this time. As the patient still has a gun in the home, he was advised that prior to discharge, this should be removed from the house and kept with one of his sons, who are keeping the rest of his firearms locked up. Patient reports this has occurred. 3. The patient is encouraged to participate with group and milieu activities. 4. The patient will be seen by the treatment team on a daily basis to assess symptom side effects and response to treatment. 5. The patient will stop Propranolol LA 60mg PO daily (with 10mg po bid as 80mg LA not available), stop Propranolol 10mg BID prn 6. The patient will be continued on his thiamine 100 mg daily and multivitamin. 7. Provided patient with a "go to" list for appropriate de-escalation activities when agitated. 8. Patient to discharge after November 06. 9. Reduce bupropion to 150mg 10 PT consult for exercises 11. Anticipated length of stay is 7-10 days. Jose Anton MD Nov 06, 2016 17:45
--- NOTE | 2016-11-06 18:09 | NUR ---
Nursin to 0 S: "I am ready to go now." O: Elias has participated in all activities today on the open unit. His facial expression is bight and confident appearing. Denies suicidality and depression. Stated gun is secured. Anxiety has been controlled with one Klonopin per day. A/P: Ready for discharge.
--- NOTE | 2016-11-06 19:06 | NUR ---
Obs Dayshift Pt is keeping himself distracted. Attends groups and activities on the unit. Engages well w/ peers and staff. Linear, calm, appropriate. States that he is likely to DC tomorrow. Good ADL's, Good meals
--- NOTE | 2016-11-06 21:57 | NUR ---
Nursing noc Pt appropriate, reality based, participating in unit activities and recreation. Pleasant on approach and conversational with patients whom are note intrusive, avoiding manic or delusional patients politely. Reports ready to be discharged tomorrow after fireworks are completed r/t PTSD of fireworks noises. Continuing to monitor mood behavior and emotional state. Q15 minute safety checks as ordered. CP
[2016-11-07] MEDS: Multivit-Miner-Folic Acid-Iron Tablet PO SCH (08:14)
[2016-11-07] MEDS: buPROPion XL 150 mg ER24 Tablet PO SCH (08:14)
[2016-11-07] MEDS: Propranolol LA 60 mg ER24 Capsule PO SCH (08:15)
[2016-11-07 10:29] VITALS: BP 108/72; PULSE 64; RESP 16
--- NOTE | 2016-11-07 15:10 | NUR ---
Nursing Note [id number] Behavior S/O: Pt out in milieu for meals & participating in groups. Pt upset this afternoon after peer became loud & yelling. Pt stated he was feeling better until that happened. Pt had difficulty talking, was tearful & shaky after witnessing episode with peer. Time spent discussing feelings. Klonopin 1 mg & Vistaril 50 mg given. Will monitor effect. A: Pt has difficulty controlling anxiety in stressful situations even when they are not r/t him. P: Provide supportive environment. Monitor medications & effects.
--- NOTE | 2016-11-07 16:10 | NUR ---
Obs Dayshift Pt has been engaging well w/ peers and staff, appropriate, and participating in groups and on the unit. Pt was looking forward to DC today, but fine staying for a proper DC later this week. Pt became anxious and restless during an outburst by a peer. Requests meds when needed, reasonable, and calm. Good ADL's, Good meals
--- NOTE | 2016-11-07 17:50 | PCM.PNPSY ---
Subjective Date of Service Nov 07, 2016 Subjective Patient felt he was doing well today and possibly ready for discharge but an event on the unit created some anxiety. Patient reports that some of his anxiety was diffused with speaking with a staff member and taking a Clonazepam. He feels that he will be ready for discharge tomorrow and will have a ride back to [place], where he lives. He continues to worry that decreasing his Wellbutrin has resulted in increased rumination about his father and finds this distressing. He is amenable to increasing to 200mg of Wellbutrin, agreeing that the higher dose of 300mg may have contributed to his afternoon agitation previously. Requests letter for his airport operations officer stating he was in voluntary treatment at a hospital. Sleep: 7 hours Appetite: okay Suicidal and homicidal ideation: Denies SI. Admits he felt like becoming physical when wanting to protect another patient from security but did not act as it would have been "wrong" Auditory hallucinations: denies Visual hallucinations: denies Other Psychotic Symptoms: denies Anxiety: manageable Depression: 10/13 Mental Status Exam Vital Signs Vital Signs Date Time Temp Pulse Resp B/P Pulse Ox O2 Delivery O2 Flow Rate FiO2 11/07/16 10:29 35.7 64 16 108/72 Appearance: Neat/well groomed Attitude: Pleasant, Cooperative Behavior: No unusual behavior Affect: Restricted (Although improved) Mood: Euthymic, Dysthymic Thought Process/Associations: Logical/Sequential, Goal Directed Speech Production: Normal Speech Rate: Normal Speech Articulation: Normal Thought Content: Appropriate Danger to Self/Suicidal Ideati: None Danger to Others: None Hallucinations: Auditory (Denies), Visual (Denies) Consciousness: Alert Orientation: Person, Place, Situation Memory: Short Term Memory (Impaired), Workforce Management Consultant Memory (Impaired) Estimate Intellectual Function: Average Basis for IQ estimate: Word use/vocabulary, Educational history Attention/Concentration & Cogn: Impaired (slightly) Insight: Good Judgement: Good Mental Health Plan The patient is a 60-year-old male who is admitted for suicidal ideation and alcohol intoxication withdrawal. He has a long history of difficulty dealing with anger and this is complicated by his history of trauma and resulting posttraumatic stress disorder. The patient is not currently engaged in [facility] and is somewhat oppositional regarding his treatment but is now willing to have outpatient [facility] treatment. The patient also consumes two pots of strong coffee per day, likely exacerbating his anxiety symptoms. The patient appears to be through his alcohol withdrawal and is exhibiting no signs of acute withdrawal syndrome. The patient appears to be experiencing benefit from propranolol with decreased anger and aggression. The patient has tolerated moving the Wellbutrin to the morning, addition of escitalopram and is agreeable to using the clonazepam once daily with hydroxyzine for lower level anxiety. Patient is amenable to clonazepam for breakthrough anxiety/anger. Patient has less afternoon anxiety with decrease in Wellbutrin but reports increased rumination. Agreeable to small increase in Wellbutrin. Allen Allen I. 1. Posttraumatic stress disorder. 2. Alcohol use disorder. 3. Major depressive disorder versus alcohol-induced depressive disorder. Allen II. Deferred. Allen III. See past medical history. Allen IV. Moderate. Allen V. Global Assessment of Functioning 40. Medications Propranolol LA 60mg once a day with 10mg po bid + PRN Escitalopram 10 mg daily Bupropion SR 200 mg daily Melatonin 10 mg nightly Zolpidem 5-10 mg nightly as needed for insomnia Clonazepam 1 mg daily Hydroxyzine 50 mg every 4 hours as needed for anxiety or agitation Gabapentin 1200 mg in the morning and 600 mg at bedtime Acetaminophen 650mg with aspirin 325mg po q 6hr prn pain Nicotine 2 mg every 4 hours as needed for tobacco withdrawal Nicotine 21 mg patch topical daily vitamin daily Thiamine 100 mg daily Treatments 1. The patient is admitted to the inpatient unit and will be provided a safe and secure environment. 2. The patient is denying current active suicidality and is not in need of one-to-one at this time. As the patient still has a gun in the home, he was advised that prior to discharge, this should be removed from the house and kept with one of his sons, who are keeping the rest of his firearms locked up. Patient reports this has occurred. 3. The patient is encouraged to participate with group and milieu activities. 4. The patient will be seen by the treatment team on a daily basis to assess symptom side effects and response to treatment. 5. The patient will stop Propranolol LA 60mg PO daily (with 10mg po bid as 80mg LA not available), stop Propranolol 10mg BID prn 6. The patient will be continued on his thiamine 100 mg daily and multivitamin. 7. Provided patient with a "go to" list for appropriate de-escalation activities when agitated. 8. Patient to discharge tomorrow, November 08. 9. Increase bupropion SR to 200mg 10. Will provide a letter for his civil preparedness officer. 11. Anticipated length of stay is 7-10 days. Madelyn Galvin DO Nov 07, 2016 17:50 Jose Anton MD Nov 07, 2016 23:37
--- NOTE | 2016-11-07 19:24 | NUR ---
Grizzlyman/Counselor S:"I'm thankful to the staff here for being so helpful." O: Patient slept 7 hours last night per staff. Patient did not report any SI, HI, or AH/VH. No Anxiety or depression. A: Patient is cooperative, pleasant, tearful at times because the staff has been so helpful, hopeful, future oriented. P: Follow care plan and coordinate with outpatient providers.
--- NOTE | 2016-11-07 22:19 | NUR ---
NURSING NOTE [id number] Mood: "anxious" Affect: anxious, more isolative and withdrawn than evening prior Behavior: at start of shift the pt. was wound up and pacing the halls d/t anxiety r/t another pt's behavioral outburst just before start of shift. Pt. was able to calm down by walking and distracting himself in the milieu and by going outside on the patio. Pt. requested to go to bed earlier than usual tonight d/t his anxiety. PRN Ambien 10 mg given @ HS. Reassurance provided. Thought processes: logical, linear, expressing insight into his condition and his triggers. Denies any safety concerns.
--- NOTE | 2016-11-08 05:37 | NUR ---
Nursing Noc Pt appears flat and withdrawn. Reports going home today in AM. Noted difficulty with sleep and requested all available PRN for anxiety and sleep. Pt out in milieu much of the evening but not interacting with other patients as much as previous shifts. Expected discharge home today. BHCP Continuing to monitor mood, behavior and emotional state. Q15 minute safety checks performed throughout the shift.
[2016-11-08] MEDS: Multivit-Miner-Folic Acid-Iron Tablet PO SCH (07:34)
[2016-11-08] MEDS: Propranolol LA 60 mg ER24 Capsule PO SCH (07:34)
[2016-11-08] MEDS ORDERED: buPROPion SR 100 mg ER12 Tablet PO SCH (08:00)
[2016-11-08] MEDS ORDERED: HYDR50CA3 PO (10:32)
[2016-11-08] MEDS ORDERED: PREN1TAB25 PO (10:32)
[2016-11-08] MEDS ORDERED: GABA-504 PO ×2 (10:32)
[2016-11-08] MEDS ORDERED: BUPR100T7 PO (10:32)
[2016-11-08] MEDS ORDERED: MELA1TAB21 PO (10:32)
[2016-11-08] MEDS ORDERED: Thiamine PO (10:32)
[2016-11-08] MEDS ORDERED: PROP80CA2 PO (10:32)
[2016-11-08] MEDS ORDERED: ZLP5T PO (10:32)
[2016-11-08] MEDS ORDERED: PROP20TA5 PO (10:32)
[2016-11-08] MEDS ORDERED: ESCI10TA52 PO (10:32)
[2016-11-08] MEDS ORDERED: KLO1T PO (10:32)
--- NOTE | 2016-11-08 11:33 | NUR ---
Nursing Note Dishcharge Patient cooperative with discharge process. Acknowledges understanding of d/c instructions and has a copy with them upon leaving unit at 1110. Belongings accounted for and with patient. Hard copy of prescriptions given to patient. Patient denies harmful thoughts and hallucinations at this time.
--- NOTE | 2016-11-08 13:49 | NUR ---
Cotton Header/Counselor S:"I had some nightmares last night." O: Patient denies any HI or SI, no AVH. He rated his anxiety at being up and his depression at below a 5. He did not have an appetite this a.m, and slept for 6.75hrs. A: Patient was discharged at 11:00 and was set up with follow up appts. at the [facility] in [place] for 11/12/16, both with a psychiatrist and a PCP. He also requested a letter for his Decorating Instructor. He stated he was stressed about a financial situation, but did not elaborate. He was given his appt. list, discharge papers and all other necessary paperwork. P: Follow discharge plan and follow up with appts.
--- NOTE | 2016-11-08 17:22 | PCM.DC.MED ---
Discharge Summary Date of Service Nov 08, 2016 Dates of Hospitalization Date of Hospital Admission Oct 24, 2016 at 15:20 Date of Discharge: Nov 08, 2016 Providers: Admitting Physician: Dileep Jimenez MD Primary Care Physician: Filiberto Oh MD Attending Physician: Dileep Jimenez MD Diagnosis at Time of Discharge Diagnosis at Time of Discharge [place] I. 1. Posttraumatic stress disorder. 2. Alcohol use disorder. 3. Major depressive disorder versus alcohol-induced depressive disorder. [place] II. Deferred. [place] III. See past medical history. [place] IV. Moderate. [place] V. Global Assessment of Functioning 50. Consultations Psychiatry- Dr Jimenez Brief History From Dr. Dileep Jimenez's Consultation on 10/26/16: IDENTIFICATION: The patient is a 60-year-old, white male. He states he currently lives alone. He stated he has been on disability since 1999, for depression and PTSD. 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 He currently is living in [place]. REASON FOR ADMISSION: Client called 911 complaining of suicidal ideation and was severely intoxicated on alcohol. REASON FOR CONSULT: I was asked to consult on the patient for evaluation of depression and suicidal ideation. I met with him for a 60-minute evaluation and reviewed course and records kept by [facility]. I also discussed his case with his Internal Medicine team physicians. Client's main issue is alcohol abuse. Co- occurring issues are depression and suicidal ideation that occur as a result of this. He states he can only stay sober for at most 2-4 years. He has been on a binge for the past month drinking primarily alcohol. He states he can stay intoxicated and conscious for about 20 minutes and then he blacks out. He denies symptoms of delirium tremens but does have significant tremulousness when coming off of alcohol. He states he has been to over 10 different inpatient drug and alcohol programs. At present, his condition is severe, manifesting with symptoms of poor sleep, mood, interest, guilt, poor energy, poor concentration and suicidal ideation with a plan to shoot himself with a gun. All the above is made worse by poor sleep, by ongoing alcohol use or by alcohol initial withdrawal symptoms, and interpersonal relationship conflicts. All the above are improved when he is in a regular 12-step program, when he refrains from recreational drugs and he has good contact with family and friends. Currently, he is presenting as emotionally labile with impaired judgment and insight. His coping skills have been overwhelmed. His reality testing is intact. Per Medical Provider summary: The patient experienced excruciating left forefoot pain this morning after lying still with his feet elevated and calves propped up on the arm rest of the chair. There is no trauma today. His feet were relatively still at the time of onset of pain. He describes a popping sensation at the time of onset of pain. It lasted for several minutes before abating gradually. At the time of my evaluation he has no significant pain. There is a great deal of distress by the severity of this pain, and is frustrated that previous medical evaluation has not helped him at all. He is not requesting pain medications. Patient reports 1.5 years of intermittent left forefoot pain, which began without specific traumatic event. He first noticed this pressing pedal on his motorcycle. Since that time it has been intermittent, but recurring on a weekly or monthly basis. The pain is sharp like "ice pick" but is not burning tingling or neuropathic in character. It is localized to the medial distal first metatarsal bone. It is not localized to the joint , plantar, dorsal or lateral areas of the fore foot. Does not radiate. [facility] "did not receive further assessment. He is very active with hiking, and does not experience this typically with such activity. He has had no fever redness or swelling of any foot. He feels there is a bony abnormality in the bone is "split" but has a hollowed out region in the middle of the metatarsal bone. He states that sometimes forefoot looks dark in color but not bruised. Hospital Course The patient is a 60-year-old male who was admitted for suicidal ideation and alcohol intoxication withdrawal. He has a long history of difficulty dealing with anger complicated by his history of trauma and resulting posttraumatic stress disorder. The patient was not engaged in [facility] upon discharge and was somewhat oppositional regarding his treatment but is now anticipating [facility] starting Saturday November 12, 2016. Upon admission, patient was consuming 2 large pots of coffee which was restricted to a couple of cups per day during his treatment. Patient's treatment included thiamine and folate in light of his alcoholism with Ativan prn withdrawal symptoms. The patient benefited from propranolol, decreasing anger and aggression. Wellbutrin 300mg po qd resulted in increase of agitation in afternoon while 150mg po qd resulted in increased rumination. Patient agreed to Wellbutrin 200mg po qd. After attempting several dosing options, propranolol 80mg qd in AM was settled upon to keep dosing regimen simple and more attainable in outpatient. The patient was started on escitalopram 10mg po qd, hydroxyzine pamoate 50mg po bid prn anxiety and clonazepam 1mg po daily prn anxiety. At the time of discharge, the patient was reporting his mood was fine. Sleep was reported as "pretty good" and appetite was reported as "not so good today" although "improved" overall. His anxiety was reported as "pretty high" secondary to discharge and depression as less than 5. He denied auditory or visual hallucinations and any thought, intent or plan of hurting himself or others. He denied medication side effects. Patient was discharged to his friend, Fredo. Medical Course of treatment: 1. Alcohol dependence with acute withdrawal - Initially placed on medical floor monitor closely on CIWA protocol - Valium given as needed based on scores, which were downward trending and elevated mainly by patient's anxiety and agitation which could have been more related to underlying mental health disorder than true alcohol withdrawal symptoms. Vital signs remained stable throughout demonstrate no evidence of seizure or delirium tremens. -Patient was monitored on continuous telemetry without noted abnormality - We provided thiamine, folate and multivitamin to address possible nutrition deficiencies associated with alcoholism. I may recommend continued treatment with these vitamins and transfer to psychiatric facility. 2. Depression and suicidal ideation: The patient did not continue to maintain suicidal ideation with sobriety and continued medical care. He certainly demonstrated significant emotional distress and evidence of a profound mood disorder. He demonstrated a high degree of anxiety, was intermittently tearful in discussing past history, appears to suffer from elements of PTSD in addition. Psychiatry was consulted regarding further recommendations and I am in agreement with decision to transfer patient to mental health floor for further psychiatric treatment given his now stable medical condition and successful alcohol detoxification. Patient benefited from volume I believe is much for treatment of his underlying anxiety disorder as a different alcohol withdrawal during his hospital stay on medical floor, which was relatively prompt. 3. Jaw pain - We continued provide when necessary medications as needed for pain, primarily ibuprofen with Percocet prescribed in addition for refractory symptoms. - He is maybe adjustment psychiatrist discretion and transfer to mental health. Exam Vital Signs (Last) Date Time Temp Pulse Resp B/P Pulse Ox O2 Delivery O2 Flow Rate FiO2 11/07/16 10:29 35.7 64 16 108/72 Exam Discharge Mental Status Exam Appearance: Neat/well groomed Attitude: Pleasant, Cooperative Behavior: No unusual behavior Affect: Restricted (Although improved) Mood: Euthymic, Dysthymic Thought Process/Associations: Logical/Sequential, Goal Directed Speech Production: Normal Speech Rate: Normal Speech Articulation: Normal Thought Content: Appropriate Danger to Self/Suicidal Ideation: None Danger to Others: None Hallucinations: Auditory (Denies), Visual (Denies) Consciousness: Alert Orientation: Person, Place, Situation Memory: Short Term Memory (Impaired), Retirement Memory (Impaired) Estimate Intellectual Function: Average Basis for IQ estimate: Word use/vocabulary, Educational history Attention/Concentration & Cognition: Impaired (slightly) Insight: Good Judgment: Good Test 10/23/16 15:21 10/23/16 18:09 10/25/16 05:21 10/25/16 23:30 Hold Urine Received (Received) Thyroid Stimulating Hormone (TSH) 0.529uIU/mL (0.450-4.500) White Blood Count 6.7th/mm3 (3.8-10.1) Red Blood Count 5.01mil/mm3 (4.40-5.80) Hemoglobin 15.3g/dL (13.8-17.2) Hematocrit 45.9% (41.0-50.0) Mean Corpuscular Volume 91.6fL (81-100) Mean Corpuscular Hemoglobin 30.5pg (27.0-35.0) Mean Corpuscular Hemoglobin Concent 33.3% (32.0-37.0) Red Cell Distribution Width 15.0% (12.3-15.4) Platelet Count 274bil/L (150-400) Neutrophils (%) (Auto) 51.8% (40-74) Lymphocytes (%) (Auto) 30.3% (14-46) Monocytes (%) (Auto) 14.2% (4-12) Eosinophils (%) (Auto) 3.0% (0-5) Basophils (%) (Auto) 0.6% (0-3) Sodium Level 141mEq/L (134-144) Potassium Level 4.2mEq/L (3.5-5.2) Chloride Level 101mEq/L (97-108) Carbon Dioxide Level 26mmol/L (18-29) Blood Urea Nitrogen 17mg/dL (6-24) Creatinine 0.91mg/dL (0.76-1.27) Estimat Glomerular Filtration Rate 91mL/min (>59) Glucose Level 96mg/dL (60-99) Calcium Level 9.7mg/dL (8.5-10.1) Magnesium Level 2.3mg/dL (1.6-2.6) Total Bilirubin 0.6mg/dL (0.0-1.2) Aspartate Amino Transf (AST/SGOT) 18U/L (0-50) Alanine Aminotransferase (ALT/SGPT) 12U/L (0-44) Alkaline Phosphatase 77U/L (25-150) Total Protein 7.0g/dL (6.4-8.4) Albumin 4.4g/dL (3.4-5.0) Hepatitis B Surface Antigen Negative (Negative) Hepatitis C Antibody <0.1s/co ratio (0.0-0.9) HIV (1&2) Ag and Ab, 4th Generation Non reactive (Non Reactive) HIV (1&2) Antibody Rapid Negative (Negative) Discharge Medications Discharge Medications ([Thiamine]) 100 MG TABLET 100 MG PO DAILY Prescribed by: TJ SALVADOR MD Bupropion ER (Wellbutrin SR) 100 Mg Tablet.er 200 MG PO DAILYWM Prescribed by: TJ SALVADOR MD Carboxymethylcellulose Sodium (Lubricant Eye Drops) 15 Ml Drops 1-2 DROP BOTH_ EYES DAILY (Reported) Escitalopram Oxalate (Escitalopram Oxalate) 10 Mg Tablet 10 MG PO DAILY Prescribed by: TJ SALVADOR MD Gabapentin (Gabapentin) 400 Mg Capsule 1,200 MG PO QAM Prescribed by: TJ SALVADOR MD Gabapentin (Gabapentin) 400 Mg Capsule 400-800 MG PO QPM Prescribed by: TJ SALVADOR MD Nicotine 21 mg/24 hr Patch (Nicotine 21 mg/24 hr Patch) 1 Each Patch.td24 1 PATCH TOPICAL DAILY Prescribed by: ESAU COLE DO Vit#96/Ferrous Fum/FA ( Tablet) 1 Each Tablet 1 TABLET PO DAILY Prescribed by: TJ SALVADOR MD Propranolol ER (Propranolol ER) 80 Mg Cap.sa.24h 80 MG PO DAILY Prescribed by: TJ SALVADOR MD As needed Aspirin/Acetaminophen/Caffeine (Vtsrvur-Ahdfcxntdbxke-Tspy Tab) 250 Mg-250 Mg- 65 Mg Tablet 3 EACH PO BID PRN PRN For Pain (Reported) Clonazepam (Clonazepam) 1 Mg Tablet 1 MG PO DAILY PRN PRN For Anxiety Prescribed by: TJ SALVADOR MD Hydroxyzine Pamoate (HydrOXYzine Pamoate) 50 Mg Capsule 50 MG PO BID PRN PRN For Anxiety or Agitation Prescribed by: TJ SALVADOR MD Melatonin/Pyridoxine HCl (B6) (Melatonin 10 mg Tablet) 1 Each Tab.mphase 1 EACH PO HS PRN PRN Insomnia Prescribed by: TJ SALVADOR MD Propranolol HCl (Propranolol HCl) 20 Mg Tablet 10 MG PO BID PRN PRN Akathisia or anger Prescribed by: TJ SALVADOR MD Zolpidem (Ambien) 5 Mg Tablet 5-10 MG PO HS PRN PRN Insomnia Prescribed by: TJ SALVADOR MD Followup Plan Disposition: Patient is requesting discharge. He is currently denying acute psychiatric issues and there is no indication for referral to [facility] The patient verbally consented to take the prescribed medications. The patient verbally expressed understanding of the risks, benefits, alternative treatment options, and risks of not taking the prescribed medication. The patient verbally expressed understanding of the medication instructions, that he will adhere to the prescribed medication, and that he will go to all aftercare scheduled appointments. Follow-up plan Therapist Jeana Carnes 11/12/16 at 1pm [facility] walk in hours [phone] M-F [address] [place] [address] Angelo on 11/12/16 at 1:30pm [address] [place] [address] Discharge Diet: No restrictions Discharge Activity: No restrictions Patient Instructions If you have any thoughts of harming yourself, call your provider, therapist, 911 , the crisis line, or go to the nearest ER Continue your medications as prescribed until you speak with your provider You have been given prescriptions for a one month supply of medication Madelyn Galvin DO Nov 08, 2016 17:22
== END 2016-11-08 11:10 | disposition home or self-care (01) | DRG 897 ==
LOC: SED 15:07 → MPC 10-24 15:20 → MHC 10-26 15:06
PROVIDERS: ADMIT Psychiatry & Neurology Psychiatry; ATTEND Family Medicine
DX: F10.239 Alcohol dependence with withdrawal, unspecified (principal); R45.851 Suicidal ideations; R44.1 Visual hallucinations; F43.10 Post-traumatic stress disorder, unspecified; F12.90 Cannabis use, unspecified, uncomplicated; F32.9 Major depressive disorder, single episode, unspecified; R68.84 Jaw pain; F10.24 Alcohol dependence with alcohol-induced mood disorder; R45.4 Irritability and anger; M79.672 Pain in left foot